=== PATIENT | female | born 1965 ===

== ENCOUNTER 2020-12-07 12:25 | Outpatient (REF) | payer OTHER, SELFPAY ==
--- NOTE | 2020-12-07 | US_ITS ---
EXAMINATION: US DIAGNOSTIC ULTRASOUND BREAST, RIGHT CLINICAL INFORMATION: Palpable abnormality medial aspect right breast. COMPARISON: None. TECHNIQUE: Ultrasound of the breast is performed with real-time rodriguez scale imaging and color Doppler. FINDINGS: Targeted ultrasound evaluation in region of patient's complaint of the right breast did not demonstrate any abnormal cystic or solid mass. No region of abnormal distal sound shadowing. Results are provided to the patient at time of visit by the technologist. US/US breast RT limited IMPRESSION: There are no significant changes from prior study. ASSESSMENT: BI-RADS 1, negative RECOMMENDATION: Routine annual mammography screening due in 12 months. Clinical follow-up.
--- NOTE | 2020-12-07 12:31 | MM_ITS ---
EXAMINATION: MM DIAGNOSTIC DIGITAL BREAST TOMOSYNTHESIS, BILATERAL Targeted right breast ultrasound. CLINICAL INFORMATION: Follow-up right breast density deep lateral aspect as well as patient complaining about pain and palpable area about the inferior aspect of the right breast. The lifetime risk of breast cancer based on the Tyrer-Cuzick Model is 6.4%. COMPARISON: Mammography: 12/02/2019 and studies dating back to 04/16/2016. TECHNIQUE: Digital breast tomosynthesis is performed in both the craniocaudal and mediolateral oblique views along with computer-aided detection (CAD). Synthesized 2D images are generated from the tomosynthesis. Targeted right breast ultrasound. FINDINGS: There are scattered areas of fibroglandular density (ACR BI-RADS breast composition Category b). There are no significant masses, abnormal calcifications, or other abnormalities. Stable density is seen about the deep lateral aspect of the right breast. Stable region of architectural distortion seen upper outer aspect of the left breast. Targeted ultrasound evaluation in region of patient's complaint of the right breast did not demonstrate any abnormal cystic or solid mass. No region of abnormal distal sound shadowing. Results are provided to the patient at time of visit by the technologist. MM/MM tomosynthesis diagnostic BI IMPRESSION: There are no significant changes from prior study. ASSESSMENT: BI-RADS 2: Benign. RECOMMENDATION: Routine annual mammography screening due in 12 months. This patient's information was entered into a reminder system with a target due date for their next mammogram.
== END 2020-12-07 12:26 | disposition home or self-care (01) ==
LOC: HO.MAMMO 12:25
PROVIDERS: PCP Internal Medicine; Visit Provider Internal Medicine
DX: R92.2 Inconclusive mammogram (principal); N64.4 Mastodynia
CPT/HCPCS: 76642; 77062; 77066

== ENCOUNTER 2021-01-08 14:48 | Outpatient (REF) | payer OTHER, SELFPAY ==
[2021-01-08 15:49] LABS: Basophils Absolute Auto 0.1 X10*3/uL (0.0-0.2); Basophils Percent Auto 0.6 % (0-2); Eosinophils Absolute Auto 0.2 X10*3/uL (0.0-0.4); Eosinophils Percent Auto 2.9 % (0-4); Hematocrit 40.2 % (37-47); Hemoglobin 13.2 g/dl (12.0-16.0); Imm Gran Abs Auto 0.03 X10*3/uL (0.00-0.03); Imm Gran Pct Auto 0.4 % (0.0-0.4); Lymphocytes Absolute Auto 3.4 X10*3/uL (1.2-4.9); Lymphocytes Percent Auto 40.6 % (20-40); MANUAL DIFF FLAG NO; Mean Corpuscular HGB Conc 32.8 g/dl (31.0-35.0); Mean Corpuscular Hemoglobin 30.8 pg (27.0-33.0); Mean Corpuscular Volume 93.9 fL (80-98); Mean Platelet Volume 9.9 fL (9.4-12.3); Monocytes Absolute Auto 0.7 X10*3/uL (0.1-1.2); Monocytes Percent Auto 7.8 % (2-11); Neutrophils Percent Auto 47.7 % (45-73); Platelet Count 353 X10*3/uL (160-400); Red Blood Count 4.28 X10*6/uL (4.20-5.50); Red Cell Distribution Width 13.3 % (11.0-16.0); White Blood Count 8.3 X10*3/uL (4.8-10.8)
[2021-01-08 16:19] LABS: Alanine Aminotransferase 17 U/L (0-31); Albumin Level 4.4 g/dL (3.5-5.0); Alkaline Phosphatase 104 U/L (39-117); Anion Gap 10 (12-20); Aspartate Amino Transferase 16 U/L (5-31); Bilirubin Total 0.4 mg/dL (0.0-1.0); Blood Urea Nitrogen 16 mg/dL (9-16); Calcium 9.3 mg/dL (8.4-10.2); Carbon Dioxide 29 mmol/L (22-29); Chloride 104 mmol/L (96-108); Cholesterol 225 mg/dL; Estimated Glomerular Filt Rate > 60; Glucose Random 86 mg/dL (60-115); HDL Cholesterol 46 mg/dL; LDL Cholesterol Calculated 162 mg/dl; Potassium 4.2 mmol/L (3.3-5.1); Sodium 139 mmol/L (135-145); Total Protein 6.8 g/dL (6.5-8.0); Triglycerides 86 mg/dL
[2021-01-08 16:40] LABS: Free T4 (Free Thyroxine) 1.05 ng/dL (0.71-1.85); Thyroid Stimulating Hormone 1.16 uIU/mL (0.32-4.0); Vitamin D 25-OH Total 69.1 ng/mL (>30)
[2021-01-08 16:53] LABS: Folate 6.2 ng/mL (> or = 4.0); Vitamin B12 1257 pg/mL (200-900)
== END 2021-01-08 14:49 | disposition home or self-care (01) ==
LOC: HO.LAB 14:48
PROVIDERS: PCP Internal Medicine; Visit Provider Internal Medicine
DX: E78.00 Pure hypercholesterolemia, unspecified (principal)
CPT/HCPCS: 36415; 80053; 80061; 82306; 82607; 82746; 84439; 84443; 85025

== ENCOUNTER 2021-12-13 15:07 | Outpatient (REF) | payer OTHER, SELFPAY ==
--- NOTE | ~2021-12-13 | MM_ITS ---
EXAMINATION: MM SCREENING DIGITAL BREAST TOMOSYNTHESIS, BILATERAL CLINICAL INFORMATION: Screening. Asymptomatic. The lifetime risk of breast cancer based on the Tyrer-Cuzick Model is 7%. COMPARISON: Mammography: 12/07/2020, 12/02/2019, 05/17/2019, 11/02/2018, 10/05/2018, 06/15/2017 TECHNIQUE: Digital breast tomosynthesis is performed in both the craniocaudal and mediolateral oblique views along with computer-aided detection (CAD). Synthesized 2D images are generated from the tomosynthesis. FINDINGS: There are scattered areas of fibroglandular density (ACR BI-RADS breast composition Category b). There are no significant masses, abnormal calcifications, or other abnormalities. There is stable nodule posterior central 9:00 right breast. Low right axillary tail node on MLO view also stable. Neither breast shows developing density or interval mass or architectural abnormality. The skin contours are smooth. No significant changes. MM/MM tomosynthesis screening BI IMPRESSION: No mammographic evidence of malignancy. ASSESSMENT: BI-RADS 2: Benign RECOMMENDATION: Routine annual mammography screening. This patient's information was entered into a reminder system with a target due date for their next mammogram.
== END 2021-12-13 15:08 | disposition home or self-care (01) ==
LOC: HO.MAMMO 15:07
PROVIDERS: PCP Internal Medicine; Visit Provider Internal Medicine
DX: Z12.31 Encounter for screening mammogram for malignant neoplasm of breast (principal)
CPT/HCPCS: 77063; 77067

== ENCOUNTER 2022-01-17 14:01 | Outpatient (REF) | payer OTHER, SELFPAY ==
[2022-01-17 14:22] LABS: MANUAL DIFF FLAG NO
[2022-01-17 14:42] LABS: Basophils Absolute Auto 0.1 X10*3/uL (0.0-0.2); Basophils Percent Auto 0.8 % (0-2); Eosinophils Absolute Auto 0.4 X10*3/uL (0.0-0.4); Eosinophils Percent Auto 4.5 % (0-4); Hematocrit 40.3 % (37.0-47.0); Hemoglobin 13.2 g/dl (12.0-16.0); Imm Gran Abs Auto 0.02 X10*3/uL (0.00-0.03); Imm Gran Pct Auto 0.2 % (0.0-0.4); Lymphocytes Absolute Auto 3.8 X10*3/uL (1.2-4.9); Lymphocytes Percent Auto 45.1 % (20-40); Mean Corpuscular HGB Conc 32.8 g/dl (31.0-35.0); Mean Corpuscular Hemoglobin 31.7 pg (27.0-33.0); Mean Corpuscular Volume 96.9 fL (80.0-98.0); Mean Platelet Volume 9.5 fL (9.4-12.3); Monocytes Absolute Auto 0.8 X10*3/uL (0.1-1.2); Monocytes Percent Auto 9.6 % (2-11); Neutrophils Absolute Auto 3.3 x10*3/uL (2.0-8.3); Neutrophils Percent Auto 39.8 % (45-73); Platelet Count 305 X10*3/uL (160-400); Red Blood Count 4.16 X10*6/uL (4.20-5.50); Red Cell Distribution Width 12.9 % (11.0-16.0); White Blood Count 8.3 X10*3/uL (4.8-10.8)
[2022-01-17 14:59] LABS: Alanine Aminotransferase 16 U/L (0-31); Albumin Level 4.2 g/dL (3.5-5.0); Alkaline Phosphatase 89 U/L (39-117); Anion Gap 11 (12-20); Aspartate Amino Transferase 18 U/L (5-31); Bilirubin Total 0.3 mg/dL (0.0-1.0); Blood Urea Nitrogen 15 mg/dL (9-16); Calcium 9.6 mg/dL (8.4-10.2); Carbon Dioxide 28 mmol/L (22-29); Chloride 109 mmol/L (96-108); Cholesterol 217 mg/dL; Estimated Glomerular Filt Rate > 60; Glucose Random 90 mg/dL (60-115); HDL Cholesterol 52 mg/dL; LDL Cholesterol Calculated 153 mg/dl; Potassium 4.3 mmol/L (3.3-5.1); Sodium 144 mmol/L (135-145); Total Protein 6.8 g/dL (6.5-8.0); Triglycerides 64 mg/dL
[2022-01-17 15:22] LABS: Free T4 (Free Thyroxine) 1.13 ng/dL (0.71-1.85); Thyroid Stimulating Hormone 1.33 uIU/mL (0.32-4.0); Vitamin D 25-OH Total 71.8 ng/mL (>30)
[2022-01-17 15:35] LABS: Folate 16.4 ng/mL (> or = 4.0); Vitamin B12 349 pg/mL (200-900)
[2022-01-17 16:08] LABS: Appearance Urine CLEAR; Color Urine YELLOW; Glucose Urine UA NEG (NEG); Leukocyte Esterase Urine NEG (NEG); Nitrite Urine NEG (NEG); PH 5.5 (5.0-8.0); Specific Gravity - Urine >= 1.030 (1.005-1.025); Urine Blood 2+ (NEG); Urine Ketones NEG (NEG); Urine Protein NEG (NEG-TRACE)
[2022-01-17 16:29] LABS: Bacteria Urine 1+ /LPF; Squamous Epithelial Cell Urine 1+ /LPF; WBC Urine 0 /HPF (0-4)
[2022-01-19 18:47] LABS: TS Negative Control Passed; TS Panel A 2; TS Panel B 0; TS Positive Control Passed; TSpotTB Negative (Negative)
== END 2022-01-17 14:02 | disposition home or self-care (01) ==
LOC: HO.LAB 14:01
PROVIDERS: PCP Internal Medicine; Visit Provider Internal Medicine
DX: Z00.00 Encounter for general adult medical examination without abnormal findings (principal); E78.00 Pure hypercholesterolemia, unspecified
CPT/HCPCS: 36415; 80053; 80061; 81001; 82306; 82607; 82746; 84439; 84443; 85025; 86481

== ENCOUNTER 2022-01-24 09:30 | Outpatient (REF) | payer OTHER, SELFPAY ==
--- NOTE | ~2022-01-24 | CT_ITS ---
EXAMINATION: CT ABDOMEN AND PELVIS WITHOUT AND WITH CONTRAST CLINICAL INFORMATION: Hematuria COMPARISON: Renal ultrasound 09/28/2018 TECHNIQUE: Multidetector volumetric imaging was performed of the abdomen and pelvis before and after the IV administration of 85 mL of Omnipaque 300 intravenous contrast. Sagittal and coronal reformatted images were obtained on the technologist's workstation. This CT examination was performed using dose optimization techniques as appropriate, variously including the following: *Automated exposure control *Adjustment of mA and/or kV according to patient size (this includes techniques or standardized protocols for targeted exams where dose is matched to indication/reason for exam; i.e. extremities or head) *Use of iterative reconstruction technique DLP: 842 mGy-cm FINDINGS: LUNG BASES: The lung bases are clear. The heart size is normal. LIVER, GALLBLADDER, AND BILIARY TREE: The liver is normal in size, shape, and attenuation. No focal hepatic lesion or biliary ductal dilatation is present. The gallbladder is unremarkable with no evidence of radiopaque gallstones, gallbladder wall thickening, or obvious pericholecystic inflammatory changes. PANCREAS: Unremarkable SPLEEN: Unremarkable ADRENAL GLANDS: Unremarkable KIDNEYS AND URETERS: The kidneys are normal in size, shape, and attenuation. No hydronephrosis, hydroureter, or calculi seen. No perinephric stranding. On delayed images, there is good opacification of bilateral kidney pelvises and the ureters without any intraluminal filling defect or narrowing. There is a 2.0 cm upper/mid pole right renal cyst. The right kidney measures 9.5 cm and left kidney measures 9.6 cm BLADDER: Unremarkable GASTROINTESTINAL TRACT: There is scattered stool and gas seen throughout the colon without distention. The appendix and the small bowel loops are normal caliber. No free air or free fluid seen. ABDOMINAL WALL: No significant hernia is appreciated. LYMPH NODES: Normal VASCULAR: Unremarkable PELVIC VISCERA: The uterus is anteverted and appears unremarkable. There is no free fluid. There are scattered phleboliths in the pelvis. No abnormal size pelvic or inguinal lymph nodes seen. OSSEOUS STRUCTURES: Mild ventral spondylosis L2-L3 disc level. No aggressive lytic or sclerotic process. CT/CT abdomen pelvis wo/w con IMPRESSION: 1. No radiopaque urolith or hydroureteronephrosis. There is a small cyst, midpole right kidney. The kidney pelvis and the ureters are normal. 2. The bladder is unremarkable. 3. No etiology found for hematuria. Fleischner guidelines were followed.
[2022-01-24] MEDS: iohexoL 350 MG/ML 100 ML INFUS..BTL 85 ML IV (10:18)
== END 2022-01-24 09:31 | disposition home or self-care (01) ==
LOC: HO.CT 09:30
PROVIDERS: PCP Internal Medicine; Visit Provider Internal Medicine
DX: R31.9 Hematuria, unspecified (principal)
CPT/HCPCS: 74178; Q9967

== ENCOUNTER 2022-04-15 14:52 | Outpatient (REF) | payer OTHER, SELFPAY ==
--- NOTE | ~2022-04-15 | CT_ITS ---
EXAMINATION: CT CHEST SCREENING CLINICAL INFORMATION: Nicotine dependence. Current smoker one pack a day for 40 years. COMPARISON: None TECHNIQUE: Multidetector volumetric CT imaging of the chest is performed without contrast using low dose technique. Additional 2D coronal and sagittal reformatted images and axial 3D maximum intensity projection (MIP) images are generated on the CT workstation. This CT examination was performed using dose optimization techniques as appropriate, variously including the following: *Automated exposure control *Adjustment of mA and/or kV according to patient size (this includes techniques or standardized protocols for targeted exams where dose is matched to indication/reason for exam; i.e. extremities or head) *Use of iterative reconstruction technique DLP: 45 mGy-cm FINDINGS: LUNGS: The lungs are well expanded and clear of acute pneumonic process. There are no pulmonary nodules, mass or consolidation. Minimal atelectatic changes are seen in the left lung base lateral basal segment and right medial lobe medial segment. MEDIASTINUM: The thyroid lobes are symmetrical and normal. The central trachea and the bronchi are widely patent. Heart size and the great vessels are normal caliber. There is no pericardial effusion. No abnormal size mediastinal or hilar lymph node seen. PLEURA: There is no pleural effusion. No pleural mass or thickening. AXILLA: There are benign-appearing lymph nodes in the axilla. The chest wall is unremarkable. UPPER ABDOMEN: Visualized liver, spleen, pancreas and bilateral adrenal glands are unremarkable. No radiopaque gallstones or wall thickening seen. OSSEOUS STRUCTURES: No lytic or sclerotic process seen. CT/CT lung screening IMPRESSION: Unremarkable CT lung screening exam. ASSESSMENT: Lung-RADS category 1: Negative RECOMMENDATION: Low-dose annual CT chest exam.
== END 2022-04-15 14:53 | disposition home or self-care (01) ==
LOC: HO.CT 14:52
PROVIDERS: Visit Provider Physician Assistant Medical
DX: Z87.891 Personal history of nicotine dependence (principal)
CPT/HCPCS: 71271; G0296

== ENCOUNTER 2022-04-25 10:21 | Outpatient (REF) | payer OTHER, SELFPAY ==
[2022-04-25 14:00] LABS: Urine Cytology See Pathology rpt
[2022-04-25 14:19] LABS: Appearance Urine HAZY; Color Urine YELLOW; Glucose Urine UA NEG (NEG); Leukocyte Esterase Urine NEG (NEG); Nitrite Urine NEG (NEG); UACC Culture Trigger NO; Urine Blood TRACE (NEG); Urine Ketones NEG (NEG); Urine Protein TRACE MG/DL (NEG-TRACE)
[2022-04-25 14:36] LABS: WBC Urine 0-2 /HPF (0-4)
[2022-04-25 14:37] LABS: Squamous Epithelial Cell Urine 2+ /LPF
== END 2022-04-25 10:22 | disposition home or self-care (01) ==
LOC: HO.LAB 10:21
PROVIDERS: PCP Internal Medicine; Visit Provider Internal Medicine
DX: R31.9 Hematuria, unspecified (principal)
CPT/HCPCS: 81001; 81003; 88112

== ENCOUNTER 2022-06-10 14:12 | Outpatient (REF) | payer OTHER, SELFPAY | END 2022-06-10 14:13 | disposition home or self-care (01) | LOC: HO.LAB 14:12 | DX: Z13.89 Encounter for screening for other disorder (principal) ==

== ENCOUNTER → 2022-07-22 14:53 | Outpatient (BNVA) | payer OTHER, SELFPAY | PROVIDERS: PCP Internal Medicine; Visit Provider Urology | DX: R31.29 Other microscopic hematuria (principal) | CPT/HCPCS: 52000 ==

== ENCOUNTER 2023-01-13 07:46 | Outpatient (REF) | payer OTHER, SELFPAY ==
--- NOTE | ~2023-01-13 | MM_ITS ---
EXAMINATION: MM SCREENING DIGITAL BREAST TOMOSYNTHESIS, BILATERAL CLINICAL INFORMATION: Screening. Asymptomatic. The lifetime risk of breast cancer based on the Tyrer-Cuzick Model is 6%. COMPARISON: Multiple prior mammography exams, most recent 12/13/2021. TECHNIQUE: Digital breast tomosynthesis is performed in both the craniocaudal and mediolateral oblique views along with computer-aided detection (CAD). Synthesized 2D images are generated from the tomosynthesis. FINDINGS: There are scattered areas of fibroglandular density (ACR BI-RADS breast composition Category b). There are scattered bilateral parenchymal asymmetries similar to prior studies. There is no developing density or interval mass or architectural abnormality. No abnormal calcifications. The axilla and skin contours are unremarkable. No significant changes from prior exams. MM/MM tomosynthesis screening BI IMPRESSION: No significant changes from prior studies. ASSESSMENT: BI-RADS 2: Benign RECOMMENDATION: Routine annual mammography screening. This patient's information was entered into a reminder system with a target due date for their next mammogram.
[2023-01-13 08:01] LABS: MANUAL DIFF FLAG NO
[2023-01-13 08:17] LABS: Basophils Absolute Auto 0.1 X10*3/uL (0.0-0.2); Basophils Percent Auto 0.9 % (0-2); Eosinophils Absolute Auto 0.2 X10*3/uL (0.0-0.4); Eosinophils Percent Auto 2.8 % (0-4); Hematocrit 38.9 % (37.0-47.0); Hemoglobin 12.9 g/dl (12.0-16.0); Imm Gran Abs Auto 0.01 X10*3/uL (0.00-0.03); Imm Gran Pct Auto 0.1 % (0.0-0.4); Lymphocytes Absolute Auto 4.3 X10*3/uL (1.2-4.9); Lymphocytes Percent Auto 50.2 % (20-40); Mean Corpuscular HGB Conc 33.2 g/dl (31.0-35.0); Mean Corpuscular Volume 93.5 fL (80.0-98.0); Mean Platelet Volume 9.2 fL (9.4-12.3); Monocytes Absolute Auto 0.7 X10*3/uL (0.1-1.2); Monocytes Percent Auto 8.7 % (2-11); Neutrophils Absolute Auto 3.1 x10*3/uL (2.0-8.3); Neutrophils Percent Auto 37.3 % (45-73); Platelet Count 337 X10*3/uL (160-400); Red Blood Count 4.16 X10*6/uL (4.20-5.50); Red Cell Distribution Width 13.5 % (11.0-16.0); White Blood Count 8.5 X10*3/uL (4.8-10.8)
[2023-01-13 08:58] LABS: Alanine Aminotransferase 19 U/L (0-31); Alkaline Phosphatase 95 U/L (39-117); Anion Gap 13 (12-20); Aspartate Amino Transferase 18 U/L (5-31); Bilirubin Total 0.4 mg/dL (0.0-1.0); Blood Urea Nitrogen 20 mg/dL (9-16); Calcium 8.9 mg/dL (8.4-10.2); Carbon Dioxide 25 mmol/L (22-29); Chloride 109 mmol/L (96-108); Cholesterol 224 mg/dL; Estimated Glomerular Filt Rate > 60; Glucose Random 97 mg/dL (60-115); HDL Cholesterol 54 mg/dL; LDL Cholesterol Calculated 159 mg/dl; Potassium 4.5 mmol/L (3.3-5.1); Sodium 142 mmol/L (135-145); Total Protein 6.1 g/dL (6.5-8.0); Triglycerides 59 mg/dL
[2023-01-13 09:26] LABS: Folate 13.5 ng/mL (> or = 4.0); Free T4 (Free Thyroxine) 1.03 ng/dL (0.71-1.85); Thyroid Stimulating Hormone 1.71 uIU/mL (0.32-4.0); Vitamin B12 398 pg/mL (200-900)
== END 2023-01-13 07:47 | disposition home or self-care (01) ==
LOC: HO.MAMMO 07:46
PROVIDERS: PCP Internal Medicine; Visit Provider Internal Medicine
DX: Z12.31 Encounter for screening mammogram for malignant neoplasm of breast (principal); E78.00 Pure hypercholesterolemia, unspecified
CPT/HCPCS: 36415; 77063; 77067; 80053; 80061; 82607; 82746; 84439; 84443; 85025

== ENCOUNTER 2023-07-21 14:02 | Outpatient (AMB) | payer OTHER, SELFPAY ==
--- NOTE | 2023-07-21 14:13 | MHC.OFFVIS ---
Intake Intake Visit Reasons: Hematuria- yearly follow up Intake Note: Patient presents for follow up Micro Hematuria Urology Medications: none Blood Thinner: none Director Clinical Information Services Required: No Accompanied by: Self / Same As Patient Allergies duloxetine Adverse Reaction (Intermediate, Verified 07/21/23 14:19) sedation Medication List - Last Reconciled 07/21/23 by Jaron Nieto MD ascorbic acid (vitamin C) 500 mg PO DAILY cholecalciferol (vitamin D3) 25 mcg PO DAILY [CPAP As directed] magnesium oxide 500 mg PO DAILY nicotine 1 patch transdermal DAILY vitamin E (dl, acetate) 180 mg PO DAILY HPI HPI Comments History of Present Illness Details Syeda is a pleasant female. She is a patient Dr. Pizarro. 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 07/28 Has anteverted uterus and cervical cuff is collapsing bladder down on to trigone. This creates irritation and small blood vessels on the bladder side likely causing microscopic hematuria. [facility] Medical History Personal history of nicotine dependence Hypercholesterolemia Fibromyalgia Insomnia Allergic rhinitis Vitamin D deficiency Surgical History History of colonoscopy (~2016) Status post excision of lipoma (~2011) History of lithotripsy (~2015) History of tonsillectomy Family History Father Hypertension Multiple myeloma Mother Bladder cancer Brain cancer Maternal Grandmother Gastric cancer Paternal Grandfather Brain tumor Son In good health Son In good health Son In good health Brother In good health Brother In good health Social History Housing: House Alcohol intake: current Alcohol intake frequency: holidays/special occasions only Patient Tobacco Use Status: Current someday Tobacco user Tobacco use type: Cigarette Years Smoked: (onset 15yo, 1ppd x 41yrs, 40pyh, still smoking) e-Cigarette/Vaping Use: Never Used Second Hand Smoke Exposure: No Current occupational status: employed Cognitive needs: No Hearing needs: No Vision needs: No Review of Systems Const Denies chills and Denies fever(s) Card Reports no additional complaints and Denies syncope Resp Denies cough GI Denies abdominal pain and Denies heartburn Reports as per HPI and Denies change in libido Neuro Denies syncope Psych Denies change in libido Endo Denies change in libido Physical Exam Const General: cooperative, healthy appearing, comfortable and no acute distress Orientation/consciousness: patient oriented x3 HEENT Face and sinus: Yes normal facial exam Mouth: moist mucous membranes Neck Neck: Yes normal visual inspection, Yes full ROM and Yes trachea midline Chest Chest palpation & inspection: normal inspection of the chest Resp Effort & Inspection: normal respiratory effort, able to speak in complete sentences and no respiratory distress GI Inspection: Yes normal to inspection Back/Spine/Pelvis Cervical Spine: normal cervical lordosis Thoracic/Lumbar Spine: thoracic and lumbar spine normal to inspection Skin General skin exam: no rashes or lesions noted Neuro General: patient oriented x3, gait normal, tone normal and moves all extremities Extrem General: Yes normal to inspection and Yes capillary refill normal Results AMB Urinalysis, Automated UA Leukoctes 0 Rosalina/uL Last Edit by Applaud on 07/21/23 14:30 UA Nitrite Last Edit by Applaud on 07/21/23 14:30 UA Urobilinogen 0.2 mg/dL Last Edit by Applaud on 07/21/23 14:30 UA Protein 0 mg/dL Last Edit by Applaud on 07/21/23 14:30 UA pH 6.0 Last Edit by Applaud on 07/21/23 14:30 UA Blood 25 Mike/uL Last Edit by Applaud on 07/21/23 14:30 UA Specific [place] 1.020 Last Edit by Applaud on 07/21/23 14:30 UA Ketone Negative Last Edit by Applaud on 07/21/23 14:30 UA Bilirubin 0 mg/dL Last Edit by Applaud on 07/21/23 14:30 UA Glucose 0 mg/dL Last Edit by Applaud on 07/21/23 14:30 Assessment & Plan Assessment & Plan (1) Microscopic hematuria: Code(s): R31.29 - Other microscopic hematuria Plan Twelve month follow-up renal bladder ultrasound Orders: Orders AMB Urinalysis Automated Today R31.29 - Other microscopic hematuria, Z13.9 - Encounter for screening, unspecified US retroperitoneal limited Today R31.29 - Other microscopic hematuria Patient Instructions: Imaging studies, laboratory and physical exam results were discussed and reviewed in detail. No major barriers to patient understanding were identified. An opportunity to ask questions regarding the treatment plan was provided. All questions were answered. The patient expressed understanding and agreement with the above treatment plan. The patient is aware they should contact our office by phone for worsening of their current condition or the appearance of new urologic symptoms. Compliance is encouraged with any medications and followup testing that is ordered. It is a privilege to participate in the urologic care of your patient. If you have any questions or concerns regarding treatment for the above conditions, or other urologic issues, please do not hesitate to contact me. The office telephone contact is [phone]. This note is constructed using voice recognition software. While every effort has been made to ensure accuracy building performance specialist errors may have been included. Yours sincerely, Dr Jaron Nieto MD, [facility] - Urology Providers of Expert, Compassionate Care for the Genitourinary System Coding Level of Care Code Est Pt Level 4 (59707) Diagnoses Microscopic hematuria R31.29
== END 2023-07-21 14:28 | disposition home or self-care (01) ==
PROVIDERS: PCP Internal Medicine; Visit Provider Urology
DX: R31.29 Other microscopic hematuria (principal); Z13.9 Encounter for screening, unspecified
CPT/HCPCS: 99213

== ENCOUNTER 2023-07-21 14:02 | Outpatient (REF) | payer OTHER, SELFPAY ==
[2023-07-21 16:41] LABS: Urine Cytology See Pathology rpt
== END 2023-07-21 14:03 | disposition home or self-care (01) ==
LOC: HO.LNP 14:02
PROVIDERS: Visit Provider Urology
DX: R31.29 Other microscopic hematuria (principal)
CPT/HCPCS: 81003; 88112

== ENCOUNTER 2023-12-11 11:04 | Outpatient (REF) | payer OTHER, SELFPAY ==
--- NOTE | ~2023-12-11 | CT_ITS ---
EXAMINATION: CT CHEST SCREENING CLINICAL INFORMATION: Nicotine dependence; 43 factors smoking history; current smoker. COMPARISON: CT chest screening dated 04/15/2022. TECHNIQUE: Multidetector volumetric CT imaging of the chest is performed without contrast using low dose technique. Additional 2D coronal and sagittal reformatted images and axial 3D maximum intensity projection (MIP) images are generated on the CT workstation. This CT examination was performed using dose optimization techniques as appropriate, variously including the following: *Automated exposure control *Adjustment of mA and/or kV according to patient size (this includes techniques or standardized protocols for targeted exams where dose is matched to indication/reason for exam; i.e. extremities or head) *Use of iterative reconstruction technique DLP: 49 mGy-cm FINDINGS: LUNGS: The lungs are clear with no evidence of inflammation or nodules. There are minimal bibasilar foci of linear scar/subsegmental atelectasis, without focal airway obstruction. MEDIASTINUM: The mediastinum is normal. CORONARY ARTERY CALCIFICATION: Minimal. PLEURA: There is no pleural effusion. No pleural mass or thickening. AXILLA: No lymphadenopathy. UPPER ABDOMEN: Unremarkable OSSEOUS STRUCTURES: Unremarkable. CT/CT lung screening IMPRESSION: Unremarkable examination. ASSESSMENT: Lung-RADS category 1: Negative RECOMMENDATION: Routine annual low-dose CT screening in 12 months.
== END 2023-12-11 11:05 | disposition home or self-care (01) ==
LOC: HO.CT 11:04
PROVIDERS: PCP Internal Medicine; Visit Provider Physician Assistant Medical
DX: F17.210 Nicotine dependence, cigarettes, uncomplicated (principal)
CPT/HCPCS: 71271

== ENCOUNTER → 2024-01-15 09:30 | Outpatient (BNV) | payer OTHER, SELFPAY | PROVIDERS: PCP Internal Medicine; Visit Provider Radiology Diagnostic Radiology | DX: Z12.31 Encounter for screening mammogram for malignant neoplasm of breast (principal) | CPT/HCPCS: 77063; 77067 ==

== ENCOUNTER 2024-01-15 09:39 | Outpatient (REF) | payer OTHER, SELFPAY | END 2024-01-15 09:40 | disposition home or self-care (01) | LOC: HO.MAMMO 09:39 | PROVIDERS: PCP Internal Medicine; Visit Provider Internal Medicine | DX: Z12.31 Encounter for screening mammogram for malignant neoplasm of breast (principal) | CPT/HCPCS: 77063; 77067 ==

== ENCOUNTER 2024-01-26 16:02 | Outpatient (AMB) | payer OTHER, SELFPAY ==
--- NOTE | 2024-01-26 16:10 | A.OFFPC_ITS ---
Vital Signs 01/26/24 16:13 Height 5 ft 3 in Weight 169 lb 8 oz BMI 30.0 BP 100/70 Blood Pressure Location Lt brachial Position Sitting Pulse 65 Pulse Source Pulse Oximeter Pulse Oximetry (%) 96 Oxygen Delivery Method Room Air Intake Visit Reasons: pe Intake Note: Patient is here today for a physical. Administrative Receptionist Required: No Telephone Mechanic: Not Required per policy Accompanied by: Self / Same As Patient Allergies duloxetine Adverse Reaction (Intermediate, Verified 01/26/24 16:12) sedation Medication List - Last Reconciled 01/26/24 by Yessy Pizarro MD biotin (Hair, Skin and Nails (biotin)) mcg PO cholecalciferol (vitamin D3) 25 mcg PO DAILY [CPAP As directed] magnesium oxide 500 mg PO DAILY mecobalamin (vitamin B12) 5,000 mcg PO .every other day plant stanol devonte (Cholest Off Plus) mg PO Tobacco use date assessed: 01/26/24 Dental Screening Dental Screen Date: 01/26/24 Did you have a dental visit in the last 12 months?: Yes Did you have a dental problem in the last 6 months where you did not have access to dental care?: No Was dental information given to patient?: Patient has dentist HPI pe HPI Details 58-year-old obese female with obstructiv e sleep apnea hypercholesterolemia coming in for physical exam last seen in January 2023. Patient's mammogram is due colonoscopy is up-to-date. Because of the history of smoking patient is in the lung cancer screening program had a CT scan done in December 2023 unremarkable. 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 Concern that patient has gone back to smoking 10 cigarettes a day. [facility] Medical History (Updated 01/26/24 @ 17:02 by Yessy Pizarro MD) Hematuria Anxiety Personal history of nicotine dependence Hypercholesterolemia Fibromyalgia Insomnia Allergic rhinitis Vitamin D deficiency Surgical History History of colonoscopy (~2016) Status post excision of lipoma (~2011) History of lithotripsy (~2015) History of tonsillectomy Family History (Updated 01/26/24 @ 16:11 by JOSE RAUL Lucio) Father Hypertension Multiple myeloma Mother Bladder cancer Brain cancer Maternal Grandmother Gastric cancer Paternal Grandfather Brain tumor Son In good health Son In good health Son In good health Brother In good health Brother In good health Social History (Updated 01/26/24 @ 16:52 by Yessy Pizarro MD) Housing: House Alcohol intake: current Alcohol intake frequency: holidays/special occasions only Comment: once Q 3 months 1-3 drinks Patient Tobacco Use Status: Current everyday Tobacco user Tobacco use type: Cigarette Cigarette Packs Per Day: 0.5 Cigarettes Per Day: 10 Years Smoked: (onset 15yo, 1ppd x 41yrs, 40pyh, still smoking) 10 cigarettes a day e-Cigarette/Vaping Use: Never Used Second Hand Smoke Exposure: No service: No Current occupational status: employed Cognitive needs: No Hearing needs: No Vision needs: No Questionnaire PHQ-9 Over the last 2 weeks, how often have you been bothered by any of the following problems? 1. Little interest or pleasure in doing things: not at all 2. Feeling down, depressed, or hopeless: not at all 3. Trouble falling or staying asleep, or sleeping too much: not at all 4. Feeling tired or having little energy: not at all 5. Poor appetite or overeating: not at all 6. Feeling bad about yourself - or that you are a failure or have let yourself or your family down: not at all 7. Trouble concentrating on things, such as reading the newspaper or watching television: not at all 8. Moving or speaking so slowly that other people could have noticed. Or the opposite - being so fidgety or restless that you have been moving around a lot more than usual: not at all 9. Thoughts that you would be better off or of hurting yourself in some way: not at all Total score: 0 Depression Screening Interpretation: Negative Depression Screening Done: Yes Source: Developed by Drs. Jean Pierre Tiwari, Alejandra Bender, Sukhjinder Houston and colleagues, with an educational elisabet from [employer]. Thrive Questionnaire Date Thrive assessed: 01/26/24 I am a: Patient What is your living situation today?: I have a steady place to live Within the past 12 months, did the food you bought not last and you didn't have the money to get more?: Never true Within the past 12 months, did you worry whether your food would run out before you got money to buy more?: Never true Do you have trouble paying for medicines?: No Do you have trouble getting transportation to medical appointments?: No Do you have trouble paying your heating and electricity bill?: No Do you have trouble taking care of your child, family member or friend?: No Do you have trouble with day-to-day activities such as bathing, preparing meals, shopping, managing finances, etc.?: No Are you currently unemployed and looking for a job?: No Are you interested in more education?: No Currently or been in a relationship where the following occur: no concerns reported THRIVE Score: 0 AUDIT C Alcohol Use Questionnaire (AUDIT-C) 1. How often do you have a drink containing alcohol?: Monthly or less 2. How many drinks containing alcohol do you have on a typical day when you are drinking?: 1 or 2 Total Score: 1 MUKUL-7 AMB Questionnaire MUKUL-7 Date MUKUL - 7 assessed: 01/26/24 Feeling nervous, anxious, or on edge: 0 = Not at all Not being able to stop or control worryin = Not at all Worrying too much about different things: 0 = Not at all Trouble relaxin = Not at all Being so restless that it is hard to sit still: 0 = Not at all Becoming easily annoyed or irritable: 0 = Not at all Feeling afraid as if something awful might happen: 0 = Not at all Total MUKUL-7 score (0-4 normal; 5-9 mild; 10-14 moderate; 15-21 severe): 0 Source: Developed by Drs. Jean Pierre Tiwari, Alejandra Bender, Sukhjinder Houston and colleagues, with an educational elisabet from [employer]. Review of Systems Const Denies poor appetite and Denies weakness Eyes Denies no additional complaints ENT Reports Normal hearing present, Denies dizziness, Denies nasal congestion, Denies tinnitus and Denies sore throat Card Denies chest pain, Denies syncope, Denies rapid heart rate and Denies dyspnea Resp Denies cough and Denies dyspnea GI Denies change in stool character, Reports constipation, Denies diarrhea, Denies nausea and Denies vomiting Denies urinary frequency, Denies difficulty voiding and Denies dysuria Neuro Reports Normal hearing present, Denies confusion, Denies dizziness, Denies syncope and Denies weakness Psych Denies confusion Physical exam (Primary Care) Vital Signs: Last Vital Signs Pulse 65 01/26/24 16:13 BP 100/70 01/26/24 16:13 Pulse Ox 96 01/26/24 16:13 Oxygen Delivery Method Room Air 01/26/24 16:13 BMI result Body Mass Index 30.0 Tobacco/Smoking Status: Tobacco use Status Tobacco use date assessed 01/26/24 01/26/24 16:20 Patient Tobacco Use Status Current everyday Tobacco 01/26/24 16:20 Tobacco use type Cigarette 01/26/24 16:20 e-Cigarette/Vaping Use Never Used 01/26/24 16:20 PHQ-9: PHQ-9 Score PHQ-9: Total score 0 01/26/24 16:20 Depression Screening Interpretation: Negative Thrive Assessment: Date of Thrive Assessment Date Thrive assessed 01/26/24 01/26/24 16:20 Currently or been in a relationship where the following occur: no concerns reported Const Other: Right TM has impacted cerumen, left is clear TM intact lower extremity pulses are palpated and equal. General: No confusion Orientation/consciousness: No confusion HENMN Head: Yes normocephalic Ears: external ears normal and TM's normal bilaterally Face and sinus: Yes normal facial exam Mouth: moist mucous membranes Throat: Yes tonsils normal Eyes Conjunctivae: conjunctivae normal Pupils: Equal, round and reactive pupils present and Pupil accommodation reflex normal Direct Ophthalmoscopy: normal light reflex Neck Neck: No lymphadenopathy Thyroid: Thyroid normal Chest Chest palpation & inspection: normal inspection of the chest Resp Effort & Inspection: normal respiratory effort and no audible wheezes Auscultation: clear to auscultation bilaterally, no crackles, no wheezes and lung sounds not diminished Cardio Rate: regular rate Rhythm: regular rhythm Peripheral pulses: radial pulses present and dorsalis pedis present GI Palpation (GI): no masses Auscultation: normal bowel sounds and normoactive bowel sounds Rectal Exam - Female: deferred Skin General skin exam: no rashes or lesions noted Rashes: no rashes Neuro General: No confusion Cranial nerves: Yes Equal, round and reactive pupils present and Yes Normal hearing present Cognition (Neuro): normal cognition Gait exam (Neuro): Normal gait present Motor exam (neuro): 5/5 motor strength present throughout Deep tendon reflexes (DTR's): Right brachioradialis reflex intensity grade: 2+, Left brachioradialis reflex intensity grade: 2+, Right patellar reflex intensity grade: 2+ and Left patellar reflex intensity grade: 2+ Extrem General: No edema Assessment and Plan Assessment & Plan (1) Annual physical exam: Code(s): Z00.00 - Encounter for general adult medical examination without abnormal findings (2) Microscopic hematuria: Comment: Urology 2021 cystoscopy Code(s): R31.29 - Other microscopic hematuria Plan: Patient follows up with urology yearly (3) Obstructive sleep apnea (adult) (pediatric): Comment: 04/2022 Code(s): G47.33 - Obstructive sleep apnea (adult) (pediatric) Plan: Continue to use the CPAP more than 4 hours a night and benefits from this. (4) Personal history of nicotine dependence: Comment: (onset 15, 1ppd x 41yrs, 40pyh, CT scan December 2023 Code(s): Z87.891 - Personal history of nicotine dependence Plan: Patient just had a CT scan done December 2023 and the yearly. stongly advised to stop. (5) Hypercholesterolemia: Code(s): E78.00 - Pure hypercholesterolemia, unspecified Plan: Avoid fried foods, chicken skin, eggs, butter margarine, pastries and meat. Be it pork or beef they have a lot of cholesterol January 2023 last blood work LDL goal of less than 130 and triglyceride of less than 150 (6) Peripheral neuropathy: Code(s): G62.9 - Polyneuropathy, unspecified Plan: Sent in gabapentin. Discussed about testing would nerve conduction and EMG. Will hold off and try the medication. Medications: New gabapentin 100 mg PO BEDTIME 30 caps 3RF G62.9 - Polyneuropathy, unspecified Coding Level of Care Code Est Pt Prev Care 40-64y(40132) Diagnoses Annual physical exam Z00.00 Microscopic hematuria R31.29 Obstructive sleep apnea (adult) (pediatric) G47.33 Personal history of nicotine dependence Z87.891 Hypercholesterolemia E78.00 Peripheral neuropathy G62.9
[2024-01-26 16:13] VITALS: BP 100/70; PULSE 65; O2SAT 96
== END 2024-01-26 17:06 | disposition home or self-care (01) ==
PROVIDERS: Visit Provider Internal Medicine
DX: Z00.00 Encounter for general adult medical examination without abnormal findings (principal); R31.29 Other microscopic hematuria; G47.33 Obstructive sleep apnea (adult) (pediatric); Z87.891 Personal history of nicotine dependence; E78.00 Pure hypercholesterolemia, unspecified; G62.9 Polyneuropathy, unspecified
CPT/HCPCS: 99396

== ENCOUNTER 2024-01-31 10:02 | Outpatient (REF) | payer OTHER, SELFPAY ==
[2024-01-31 10:23] LABS: MANUAL DIFF FLAG NO
[2024-01-31 12:10] LABS: Basophils Percent Auto 0.5 % (0-2); Eosinophils Absolute Auto 0.2 X10*3/uL (0.0-0.4); Eosinophils Percent Auto 2.9 % (0-4); Hematocrit 39.4 % (37.0-47.0); Imm Gran Abs Auto 0.01 X10*3/uL (0.00-0.03); Imm Gran Pct Auto 0.1 % (0.0-0.4); Lymphocytes Absolute Auto 3.3 X10*3/uL (1.2-4.9); Lymphocytes Percent Auto 42.6 % (20-40); Mean Corpuscular Hemoglobin 31.3 pg (27.0-33.0); Mean Corpuscular Volume 94.9 fL (80.0-98.0); Mean Platelet Volume 10.3 fL (9.4-12.3); Monocytes Absolute Auto 0.8 X10*3/uL (0.1-1.2); Monocytes Percent Auto 10.4 % (2-11); Neutrophils Absolute Auto 3.3 x10*3/uL (2.0-8.3); Neutrophils Percent Auto 43.5 % (45-73); Platelet Count 308 X10*3/uL (160-400); Red Blood Count 4.15 X10*6/uL (4.20-5.50); Red Cell Distribution Width 13.2 % (11.0-16.0); White Blood Count 7.7 X10*3/uL (4.8-10.8)
[2024-01-31 13:09] LABS: Alanine Aminotransferase 20 U/L (0-31); Alkaline Phosphatase 87 U/L (39-117); Anion Gap 9 (12-20); Aspartate Amino Transferase 19 U/L (5-31); Bilirubin Total 0.4 mg/dL (0.0-1.0); Blood Urea Nitrogen 14 mg/dL (9-16); Calcium 9.3 mg/dL (8.4-10.2); Carbon Dioxide 28 mmol/L (22-29); Chloride 109 mmol/L (96-108); Cholesterol 195 mg/dL (<200); Estimated Glomerular Filt Rate > 60; Glucose Random 80 mg/dL (60-115); HDL Cholesterol 54 mg/dL (>40); LDL Cholesterol Calculated 130 mg/dL (<100); Potassium 4.4 mmol/L (3.3-5.1); Sodium 142 mmol/L (135-145); Total Protein 6.6 g/dL (6.5-8.0); Triglycerides 56 mg/dL (<150)
[2024-01-31 13:14] LABS: Free T4 (Free Thyroxine) 1.07 ng/dL (0.71-1.85); Thyroid Stimulating Hormone 1.29 uIU/mL (0.32-4.0); Vitamin D 25-OH Total 46.1 ng/mL (>30)
[2024-01-31 13:24] LABS: Vitamin B12 459 pg/mL (200-900)
[2024-02-02 23:08] LABS: TS Negative Control Passed; TS Panel A 0; TS Panel B 0; TS Positive Control Passed; TSpotTB Negative (Negative)
== END 2024-01-31 10:03 | disposition home or self-care (01) ==
LOC: HO.LAB 10:02
PROVIDERS: PCP Internal Medicine; Visit Provider Internal Medicine
DX: E78.00 Pure hypercholesterolemia, unspecified (principal)
CPT/HCPCS: 36415; 80053; 80061; 82306; 82607; 82746; 84439; 84443; 85025; 86481

== ENCOUNTER 2024-04-15 19:15 | Emergency (ER) | payer OTHER, SELFPAY ==
--- NOTE | ~2024-04-15 | XR_ITS ---
EXAMINATION: XR FOOT, RIGHT CLINICAL INFORMATION: Pain. Injury. COMPARISON: None available. TECHNIQUE: AP, lateral, and oblique views of the right foot. FINDINGS: The bones and soft tissues are normal. No fracture. Alignment is anatomic. Joint spaces are maintained. XR/XR foot RT min 3V IMPRESSION: Normal right foot.
--- NOTE | ~2024-04-15 | XR_ITS ---
EXAMINATION: XR ANKLE, RIGHT CLINICAL INFORMATION: Pain. Injury. COMPARISON: None available. TECHNIQUE: AP, lateral, and mortise views of the right ankle. FINDINGS: No fracture. Alignment is anatomic. No erosions. Joint spaces are maintained. Soft tissues are normal. XR/XR ankle RT min 3V IMPRESSION: Normal right ankle.
[2024-04-15 20:10] VITALS: BP 120/63; PULSE 76; RESP 18; TEMP 36.4; O2SAT 100; BMI 31.0
--- NOTE | 2024-04-15 20:16 | ED_ITS ---
HPI - General Adult General Chief complaint: Extremity Injury, Lower Stated complaint: ? R broken foot Time Seen by Provider: 04/15/24 22:55 Source: patient Mode of arrival: ambulatory Limitations: no limitations History of Present Illness ED Provider: manjit HPI narrative: Patient's while going downstairs missed the last 2 steps and twisted her right complaining of pain in the lateral aspect of the right foot no other injuries Related Data Home Medications ?Medication ?Instructions ?Recorded ?Confirmed cholecalciferol (vitamin D3) 25 25 mcg PO DAILY 01/08/21 01/26/24 mcg (1,000 unit) capsule magnesium oxide 500 mg capsule 500 mg PO DAILY 01/20/23 01/26/24 biotin 10,000 mcg chewable tablet mcg PO 01/26/24 01/26/24 (Hair, Skin and Nails (biotin)) mecobalamin (vitamin B12) 5,000 5,000 mcg PO .every other day 01/26/24 01/26/24 mcg disintegrating tablet plant stanol devonte 450 mg capsule mg PO 01/26/24 01/26/24 (Cholest Off Plus) Previous Rx's ?Medication ?Instructions ?Recorded CPAP #1 ea 07/15/22 gabapentin 100 mg capsule 100 mg PO BEDTIME #30 caps 01/26/24 ibuprofen 600 mg tablet 600 mg PO Q6H PRN fever or pain 04/15/24 #30 tabs Allergies Allergy/AdvReac Type Severity Reaction Status Date / Time duloxetine AdvReac Intermediate sedation Verified 04/15/24 20:12 Review of Systems 2 Review of Systems: Yes all other systems are reviewed and are negative PMFSH Past Medical History Medical History Hematuria Anxiety Personal history of nicotine dependence Hypercholesterolemia Fibromyalgia Insomnia Allergic rhinitis Vitamin D deficiency Surgical History History of colonoscopy (~2016) Status post excision of lipoma (~2011) History of lithotripsy (~2015) History of tonsillectomy Family History Family History Father Hypertension Multiple myeloma Mother Bladder cancer Brain cancer Maternal Grandmother Gastric cancer Paternal Grandfather Brain tumor Son In good health Son In good health Son In good health Brother In good health Brother In good health Social History Social History Housing: House Alcohol intake: current Alcohol intake frequency: holidays/special occasions only Comment: once Q 3 months 1-3 drinks Patient Tobacco Use Status: Current everyday Tobacco user Tobacco use type: Cigarette Cigarette Packs Per Day: 0.5 Cigarettes Per Day: 10 Years Smoked: (onset 15yo, 1ppd x 41yrs, 40pyh, still smoking) 10 cigarettes a day e-Cigarette/Vaping Use: Never Used Second Hand Smoke Exposure: No Advance Directives: No Advance Directives Information Provided: Yes Do you have a plan to hurt others: No Plan service: No Current occupational status: employed Cognitive needs: No Hearing needs: No Vision needs: No Physical Exam ED Vital Signs: Vital Signs - 24 hr 04/15/24 20:10 Temperature 97.5 F Pulse Rate 76 Respiratory Rate 18 Blood Pressure 120/63 Pulse Oximetry 100 Oxygen Delivery Method Room Air BMI result Body Mass Index 31.0 Extrem Ankle/foot/toe images: 2 1. Tenderness and soft tissue swelling of the right ankle area no bony deformity neurovascular intact Course Course Course Narrative: RME performed by Sheryl Marcos PA-C. Patient is a 58 year old assigned female at presenting to the emergency department with right foot pain after missing a stair. Detailed physical exam and review of systems are deferred to the mental health clinician. Imaging ordered. Patient placed back in the waiting room pending room availability and results. Patient seen and dispositioned by Dr. Caraballo. Please refer to his encounter from this visit date. Medications Administered Discontinued Medications Generic Name Dose Route Start Last Admin Trade Name Freq PRN Reason Stop Dose Admin Ibuprofen 600 mg 04/15/24 23:31 04/15/24 23:37 Ibuprofen 600 Mg Tablet PO 04/15/24 23:32 600 mg ONCE ONE Administration Medical Decision Making Medical Decision Making MDM Narrative: X-ray negative factor clinically just sprain cherelle wrap was applied Independent Interpretation I performed an independent interpretation of an: Plain X-Ray Radiology Impression Discussion of test interpretation with radiology: I have reviewed the radiologist's reading. Discharge Plan Discharge Clinical Impression: Ankle sprain and strain Patient Disposition: Home, Self-Care Instructions: Ankle Sprain (ED) Additional Instructions: Keep your right leg elevated apply ice Pain medication as advised Use crutches for ambulation Usually takes 2-3 weeks to get better Prescriptions: New ibuprofen 600 mg tablet 600 mg PO Q6H PRN (Reason: fever or pain) Qty: 30 0RF No Action cholecalciferol (vitamin D3) 25 mcg (1,000 unit) capsule 25 mcg PO DAILY (DME) CPAP See Rx Instructions .Route .MEDSUPPLY Qty: 1 0RF Rx Instructions: As directed magnesium oxide 500 mg capsule 500 mg PO DAILY mecobalamin (vitamin B12) 5,000 mcg tablet,disintegrating 5,000 mcg PO .every other day Hair, Skin and Nails (biotin) 10,000 mcg tablet,chewable PO Cholest Off Plus 450 mg capsule PO gabapentin 100 mg capsule 100 mg PO BEDTIME Qty: 30 3RF Stand Alone Forms: Work/School Release Interventions: ED Discharge Assessment Last Done: 04/15/24 23:39 Discharge Date/Time: 04/15/24 23:45 Print Language: Luxembourger
[2024-04-15 23:32] VITALS: BP 120/61; PULSE 71; RESP 18; TEMP 36.9; O2SAT 96
[2024-04-15] MEDS: Ibuprofen 600 MG TABLET PO (23:37)
[2024-04-15 23:39] VITALS: BP 120/61; PULSE 71; RESP 18; TEMP 36.9; O2SAT 96
== END 2024-04-15 23:45 | disposition home or self-care (01) ==
PROVIDERS: Emergency Provider Internal Medicine; PCP Internal Medicine
DX: S93.401A Sprain of unspecified ligament of right ankle, initial encounter (principal); S96.911A Strain of unspecified muscle and tendon at ankle and foot level, right foot, initial encounter; X50.1XXA Overexertion from prolonged static or awkward postures, initial encounter; Y93.9 Activity, unspecified; Y92.9 Unspecified place or not applicable; Y99.9 Unspecified external cause status
CPT/HCPCS: 73610; 73630; 99283

== ENCOUNTER 2024-05-27 12:49 | Outpatient (AMB) | payer OTHER, SELFPAY ==
[2024-05-27 12:52] VITALS: BP 132/68; PULSE 81; O2SAT 98; BMI 31.2
--- NOTE | 2024-05-27 12:52 | MHC.PC.OV ---
Vital Signs 05/27/24 12:52 Height 5 ft 3 in Weight 176 lb BMI 31.2 BP 132/68 Blood Pressure Location Lt brachial Position Sitting Pulse 81 Pulse Source Pulse Oximeter Pulse Oximetry (%) 98 Oxygen Delivery Method Room Air Intake [place] [facility] [place] Sharemilker Required: No Allergies duloxetine Adverse Reaction (Intermediate, Verified 05/27/24 12:52) sedation Medication List - Last Reconciled 05/27/24 by Vani Euceda PA-C biotin (Hair, Skin and Nails (biotin)) mcg PO cholecalciferol (vitamin D3) 25 mcg PO DAILY [CPAP As directed] gabapentin 100 mg PO BEDTIME ibuprofen 600 mg PO Q6H PRN magnesium oxide 500 mg PO DAILY mecobalamin (vitamin B12) 5,000 mcg PO .every other day plant stanol devonte (Cholest Off Plus) mg PO Tobacco use date assessed: 01/26/24 Dental Screening Dental Screen Date: 01/26/24 HPI [facility] [place] HPI Details 58-year-old female with past medical history of hypercholesterolemia, obstructive sleep apnea, and nicotine dependence last seen by Dr. Pizarro 01/25/2022 for coming in for acute problem.? In review of the nose patient was seen in [facility] [place] after having a fall at home and twisting her right ankle, imaging of the foot and ankle were negative. Patient diagnosed with ankle sprain instructed to keep leg elevated, use pain medication as needed, and crutches for ambulation and discharged home. Patient states she was seen in the ED 6 weeks ago for the right ankle sprain. She was using crutches for a short period of time after being discharged. She has noted mild improvement in the ankle pain but is still having pain especially while walking and when standing for prolonged periods of time. She also mentions she has numbness and tingling in the foot and anterior aspect of the lower leg with prolonged use of the ankle which resolves with rest. She has been resting, icing and elevating the leg along with using the ankle brace. She also mentions she gets bruising in the ankle with prolonged use. [facility] Medical History Hematuria Anxiety Personal history of nicotine dependence Hypercholesterolemia Fibromyalgia Insomnia Allergic rhinitis Vitamin D deficiency Surgical History History of colonoscopy (~2016) Status post excision of lipoma (~2011) History of lithotripsy (~2015) History of tonsillectomy Family History Father Hypertension Multiple myeloma Mother Bladder cancer Brain cancer Maternal Grandmother Gastric cancer Paternal Grandfather Brain tumor Son In good health Son In good health Son In good health Brother In good health Brother In good health Social History Housing: House Alcohol intake: current Alcohol intake frequency: holidays/special occasions only Comment: once Q 3 months 1-3 drinks Patient Tobacco Use Status: Current everyday Tobacco user Tobacco use type: Cigarette Cigarette Packs Per Day: 0.5 Cigarettes Per Day: 10 Years Smoked: (onset 15yo, 1ppd x 41yrs, 40pyh, still smoking) 10 cigarettes a day e-Cigarette/Vaping Use: Never Used Second Hand Smoke Exposure: No service: No Current occupational status: employed Cognitive needs: No Hearing needs: No Vision needs: No Questionnaire Thrive Questionnaire Date Thrive assessed: 01/26/24 AUDIT C Alcohol Use Questionnaire (AUDIT-C) 1. How often do you have a drink containing alcohol?: Monthly or less 2. How many drinks containing alcohol do you have on a typical day when you are drinking?: 1 or 2 Total Score: 1 MUKUL-7 AMB Questionnaire MUKUL-7 Date MUKUL - 7 assessed: 01/26/24 Source: Developed by Drs. Jean Pierre Tiwari, Alejandra Bender, Sukhjinder Houston and colleagues, with an educational elisabet from [employer]. Review of Systems Const Denies body aches, Denies chills, Denies fever(s), Denies headache(s) and Denies poor appetite Eyes Reports no additional complaints ENT Denies dysphagia, Denies dizziness, Denies headache(s) and Denies odynophagia Card Denies chest pain, Denies syncope, Denies edema, Denies irregular heart rhythm, Denies lightheadedness and Denies dyspnea Resp Denies cough and Denies dyspnea GI Denies abdominal pain, Denies constipation, Denies dysphagia, Denies diarrhea, Denies nausea, Denies odynophagia and Denies vomiting Reports no additional complaints Musc Details: right ankle pain and swelling with occasional bruising and numbness. Reports abnormal gait Skin/Breast Reports system reviewed and no additional complaints, except as documented Neuro Reports abnormal gait, Denies dizziness, Denies syncope and Denies headache(s) Psych Reports no additional complaints Physical exam (Primary Care) Vital Signs: Oxygen Delivery Method Room Air 05/27/24 12:52 Tobacco/Smoking Status: Tobacco use Status Tobacco use date assessed 01/26/24 01/26/24 16:20 Patient Tobacco Use Status Current everyday Tobacco 01/26/24 16:52 Tobacco use type Cigarette 01/26/24 16:52 e-Cigarette/Vaping Use Never Used 01/26/24 16:52 Thrive Assessment: Date of Thrive Assessment Date Thrive assessed 01/26/24 01/26/24 16:20 Const General: cooperative, healthy appearing, comfortable and no acute distress Orientation/consciousness: patient oriented x3 HENMT Head: Yes normocephalic Ears: hearing grossly normal bilaterally General nose exam: Normal external nose present Eyes General: appearance normal, both eyes and all related structures Conjunctivae: conjunctivae normal Neck Neck: Yes full ROM and Yes no lymphadenopathy Resp Effort & Inspection: normal respiratory effort Auscultation: clear to auscultation bilaterally, no crackles, no rales, no rhonchi and no wheezes Cardio Rate: regular rate Rhythm: regular rhythm Peripheral pulses: dorsalis pedis present Skin General skin exam: no rashes or lesions noted Neuro General: patient oriented x3 Extrem Other: Pain to palpation of lateral malleolus without bruising or redness. No evidence of ankle instability. Negative Heredia test. Foot and ankle are nuerovascularly intact. General: Yes normal to inspection, Yes full ROM and No edema Psych Affect: normal affect Attitude: cooperative Insight: Good insight present (Psych) Judgement: Good judgement present (Psych) Assessment and Plan Assessment & Plan (1) Right ankle sprain: Code(s): S93.401A - Sprain of unspecified ligament of right ankle, initial encounter Qualifiers: Encounter type: subsequent encounter Involved ligament of ankle: unspecified ligament Qualified Code(s): S93.401D - Sprain of unspecified ligament of right ankle, subsequent encounter Plan: Foot and ankle appear to be neurovascularly intact. Additional XR is not indicated at this time. We will refer to PT for further treatment, continue to ambulate as tolerated. Patient agreed to reach out if symptoms worsen or continue to not improve. She was counseled on concerning symptoms and advised to follow up if she re-injures the ankle or she develops symptoms suggestive of DVT or has continued numbness without resolution. Work note with restrictions given. Plan This note was constructed using voice recognition software. While every effort has been made to ensure accuracy and counter cutter, still areas may have been included sometimes these areas may affect the content or meeting of the given symptoms. Total time spent caring for the patient today was 30 minutes. This includes time spent before the visit reviewing the chart, time spent during the visit, and time spent after the visit and documentation. Orders: Orders PT Evaluation and Treatment Today S93.401A - Sprain of unspecified ligament of right ankle, initial encounter Coding Level of Care Code Est Pt Level 4 (73531) Diagnoses Sprain of right ankle, unspecified ligament, subsequent encounter S93.401D Encounter type: subsequent encounter Involved ligament of ankle: unspecified ligament
== END 2024-05-27 13:38 | disposition home or self-care (01) ==
PROVIDERS: PCP Internal Medicine
DX: S93.401D Sprain of unspecified ligament of right ankle, subsequent encounter (principal)
CPT/HCPCS: 99214

== ENCOUNTER 2024-07-19 13:02 | Outpatient (REF) | payer OTHER, SELFPAY ==
--- NOTE | ~2024-07-19 | US_ITS ---
EXAMINATION: US RETROPERITONEAL COMPLETE (RENAL) CLINICAL INFORMATION: Other microscopic hematuria. COMPARISON: CT abdomen and pelvis 01/24/2022. Renal ultrasound 09/28/2018 and 10/13/2017. X-ray KUB 03/09/2016 and 08/27/2015. TECHNIQUE: Real-time imaging of the kidneys and bladder. FINDINGS: RIGHT KIDNEY: 9.9 x 4.5 x 5.0 cm (SAG x AP x TRV). The kidney is normal in size, contour, and echogenicity. Renal cortical thickness is normal. No renal calculi or hydronephrosis. A benign upper pole 2.0 cm Bosniak class I renal cyst is noted which requires no additional imaging or follow up. No solid renal masses are seen. LEFT KIDNEY: 9.3 x 5.1 x 5.3 cm (SAG x AP x TRV). The kidney is normal in size, contour, and echogenicity. Renal cortical thickness is normal. No calculi or focal parenchymal lesions. A dromedary hump is present, as can also be seen on the prior CT. No hydronephrosis. BLADDER: Partially distended. Bilateral ureteral jets are demonstrated. Prevoid bladder volume is 131 mL. Postvoid bladder volume is 6.6 mL. US/US retroperitoneal comp IMPRESSION: No significant abnormality is seen. A cause for the patient's hematuria has not been found. Electronically signed by: Aneesh Schuster MD 07/24/2024 03:50 PM EDT
== END 2024-07-19 13:03 | disposition home or self-care (01) ==
LOC: HO.US 13:02
PROVIDERS: PCP Internal Medicine; Visit Provider Urology
DX: R31.29 Other microscopic hematuria (principal)
CPT/HCPCS: 76770

== ENCOUNTER 2024-08-16 14:33 | Outpatient (AMB) | payer OTHER, SELFPAY ==
--- NOTE | 2024-08-16 14:53 | A.OFFVIS_ITS ---
Intake Visit Reasons: follow up/US(set) Intake Note: Patient is present for Ultrasound follow up Urology Med: None Antibiotic Allergy:none Fiberglass Boat Maker Required: No Accompanied by: Self / Same As Patient Allergies duloxetine Adverse Reaction (Intermediate, Verified 08/16/24 14:54) sedation HPI Comments Details: Syeda is a pleasant female. She is a patient Dr. Pizarro. She is seen for the following urologic conditions - microscopic hematuria Twelve month follow-up UA negative P.r.n. 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 07/28 Has anteverted uterus and cervical cuff is collapsing bladder down on to trigone. This creates irritation and small blood vessels on the bladder side likely causing microscopic hematuria. [facility] Medical History Hematuria Anxiety Personal history of nicotine dependence Hypercholesterolemia Fibromyalgia Insomnia Allergic rhinitis Vitamin D deficiency Surgical History History of colonoscopy (~2016) Status post excision of lipoma (~2011) History of lithotripsy (~2015) History of tonsillectomy Family History Father Hypertension Multiple myeloma Mother Bladder cancer Brain cancer Maternal Grandmother Gastric cancer Paternal Grandfather Brain tumor Son In good health Son In good health Son In good health Brother In good health Brother In good health Social History Housing: House Alcohol intake: current Alcohol intake frequency: holidays/special occasions only Comment: once Q 3 months 1-3 drinks Patient Tobacco Use Status: Current everyday Tobacco user Tobacco use type: Cigarette Cigarette Packs Per Day: 0.5 Cigarettes Per Day: 10 Years Smoked: (onset 15yo, 1ppd x 41yrs, 40pyh, still smoking) 10 cigarettes a day e-Cigarette/Vaping Use: Never Used Second Hand Smoke Exposure: No service: No Current occupational status: employed Cognitive needs: No Hearing needs: No Vision needs: No Review of Systems Const Denies chills and Denies fever(s) Card Reports no additional complaints and Denies syncope Resp Denies cough GI Denies abdominal pain and Denies heartburn Reports as per HPI and Denies change in libido Neuro Denies syncope Psych Denies change in libido Endo Denies change in libido Physical Exam Const General: cooperative, healthy appearing, comfortable and no acute distress Orientation/consciousness: patient oriented x3 HEENT Face and sinus: Yes normal facial exam Mouth: moist mucous membranes Neck Neck: Yes normal visual inspection, Yes full ROM and Yes trachea midline Chest Chest palpation & inspection: normal inspection of the chest Resp Effort & Inspection: normal respiratory effort, able to speak in complete sentences and no respiratory distress GI Inspection: Yes normal to inspection Back/Spine/Pelvis Cervical Spine: normal cervical lordosis Thoracic/Lumbar Spine: thoracic and lumbar spine normal to inspection Skin General skin exam: no rashes or lesions noted Neuro General: patient oriented x3, gait normal, tone normal and moves all extremities Extrem General: Yes normal to inspection and Yes capillary refill normal Assessment & Plan Assessment & Plan (1) Microscopic hematuria: Comment: Urology 2021 cystoscopy Code(s): R31.29 - Other microscopic hematuria Category: Medical Plan P.r.n. follow-up Patient Instructions: Imaging studies, laboratory and physical exam results were discussed and reviewed in detail. No major barriers to patient understanding were identified. An opportunity to ask questions regarding the treatment plan was provided. All questions were answered. The patient expressed understanding and agreement with the above treatment plan. The patient is aware they should contact our office by phone for worsening of their current condition or the appearance of new urologic symptoms. Compliance is encouraged with any medications and followup testing that is ordered. It is a privilege to participate in the urologic care of your patient. If you have any questions or concerns regarding treatment for the above conditions, or other urologic issues, please do not hesitate to contact me. The office telephone contact is [phone]. This note is constructed using voice recognition software. While every effort has been made to ensure accuracy keno terminal operator errors may have been included. Yours sincerely, Dr Jaron Nieto MD, [facility] - Urology Providers of Expert, Compassionate Care for the Genitourinary System Coding Level of Care Code Est Pt Level 3 (83406) Diagnoses Microscopic hematuria R31.29
== END 2024-08-16 15:35 | disposition home or self-care (01) ==
PROVIDERS: PCP Internal Medicine; Visit Provider Urology
DX: R31.29 Other microscopic hematuria (principal)
CPT/HCPCS: 99213

== ENCOUNTER → 2024-08-16 14:33 | Outpatient (BNVA) | payer OTHER, SELFPAY | PROVIDERS: PCP Internal Medicine; Visit Provider Urology ==

== ENCOUNTER 2024-12-09 15:42 | Outpatient (REF) | payer OTHER, SELFPAY ==
--- NOTE | ~2024-12-09 | XR_ITS ---
EXAMINATION: XR HAND/WRIST, RIGHT CLINICAL INFORMATION: S60.221A - Contusion of right hand, initial encounter COMPARISON: None available. TECHNIQUE: PA, lateral, and oblique views of the right hand and wrist. FINDINGS: There is a nondisplaced fracture distal radial metaphysis with mild dorsal angulation . There is intra-articular extension into the radiocarpal joint. Moderate dorsal soft tissue swelling is noted. No additional fractures are seen. XR/XR hand wrist RT IMPRESSION: Distal radial transverse fracture with dorsal angulation and moderate dorsal soft tissue swelling. There is intra-articular extension of the fracture. Electronically signed by: Sharad Peraza MD 12/09/2024 05:57 PM EST
== END 2024-12-09 15:43 | disposition home or self-care (01) ==
LOC: HO.HMGCX 15:42
PROVIDERS: PCP Internal Medicine; Visit Provider Nurse Practitioner Family
DX: S60.221A Contusion of right hand, initial encounter (principal)
CPT/HCPCS: 73110; 73130

== ENCOUNTER → 2024-12-09 16:17 | Outpatient (BNV) | payer OTHER, SELFPAY | PROVIDERS: PCP Internal Medicine; Visit Provider Radiology Diagnostic Radiology | DX: S52.321A Displaced transverse fracture of shaft of right radius, initial encounter for closed fracture (principal) | CPT/HCPCS: 73110; 73130 ==

== ENCOUNTER 2024-12-13 13:25 | Outpatient (REF) | payer OTHER, SELFPAY ==
--- NOTE | ~2024-12-13 | XR_ITS ---
EXAMINATION: XR WRIST 3 OR MORE VIEWS RIGHT HISTORY: M25.531 - Pain in right wrist COMPARISON: Comparison is made with the prior examination dated 12/09/2024. FINDINGS: Three views of the right hand are submitted. Osseous mineralization is normal. Again seen is a nondisplaced comminuted intra-articular fracture of the distal radius. Fracture lines remain visible. The joint spaces are preserved. There is diffuse mild soft tissue swelling. XR/XR wrist RT min 3V IMPRESSION: Nondisplaced comminuted intra-articular fracture of the distal radius without significant change. Electronically signed by: Jean Pierre Talavera MD 12/13/2024 02:29 PM MARLEE
== END 2024-12-13 13:26 | disposition home or self-care (01) ==
LOC: HO.HOSX 13:25
PROVIDERS: PCP Internal Medicine; Visit Provider Physician Assistant
DX: S52.501A Unspecified fracture of the lower end of right radius, initial encounter for closed fracture (principal); M25.531 Pain in right wrist
CPT/HCPCS: 73110

== ENCOUNTER 2024-12-13 13:25 | Outpatient (AMB) | payer OTHER, SELFPAY ==
--- NOTE | 2024-12-13 13:27 | MHC.OFFVIS ---
Vital Signs 12/13/24 13:34 Height 5 ft 3 in Weight 176 lb BMI 31.2 Intake Visit Reasons: FC - Right Distal Radius Fx - 12/09/24 Intake Note: Syeda is a 59 year old right hand dominant female who presents today for a fracture care visit of her right wrist. On 12/09/23 she slipped and fell on ice and landed one right right wrist. Patient was seen at the urgent care after the injury where she was placed in a splint. Patient currently reports that she is tolerating pain well with pain medication. denies numbness and tingling. Allergies duloxetine Adverse Reaction (Intermediate, Verified 12/09/24 16:02) sedation HPI HPI FC - Right Distal Radius Fx - 12/09/24: Details: Syeda is a 59 year old right hand dominant female who presents today for a fracture care visit of her right wrist. On 12/09/23 she slipped and fell on ice and landed one right right wrist. Patient was seen at the urgent care after the injury where she was placed in a splint. Patient currently reports that she is tolerating pain well with pain medication. denies numbness and tingling. [facility] Medical History (Updated 12/13/24 @ 15:37 by RUFUS Chaparro) Contusion of right hand Nicotine dependence, cigarettes, uncomplicated Hematuria Anxiety Hypercholesterolemia Fibromyalgia Insomnia Allergic rhinitis Vitamin D deficiency Surgical History History of colonoscopy (~2016) Status post excision of lipoma (~2011) History of lithotripsy (~2015) History of tonsillectomy Family History Father Hypertension Multiple myeloma Mother Bladder cancer Brain cancer Maternal Grandmother Gastric cancer Paternal Grandfather Brain tumor Son In good health Son In good health Son In good health Brother In good health Brother In good health Social History Housing: House Alcohol intake: current Alcohol intake frequency: holidays/special occasions only Comment: once Q 3 months 1-3 drinks Patient Tobacco Use Status: Current everyday Tobacco user Tobacco use type: Cigarette Cigarette Packs Per Day: 0.5 Cigarettes Per Day: 10 Years Smoked: (onset 15yo, 1ppd x 41yrs, 40pyh, still smoking) 10 cigarettes a day e-Cigarette/Vaping Use: Never Used Second Hand Smoke Exposure: No service: No Current occupational status: employed Cognitive needs: No Hearing needs: No Vision needs: No Review of Systems Const All systems reviewed & are unremarkable except as noted in HPI and below Physical Exam Vital Signs: BMI result Body Mass Index 31.2 Extrem Other: Patient is alert, oriented, and in no acute distress. Neuro: Normal sensation of the tips of all digits of the right hand at this time Vascular: Cap refill brisk Pain: Patient reports significant tenderness to palpation about the dorsal aspect of the right wrist No pain with range of motion of the fingers of the right hand ROM: Patient is able to make a closed fist and extend all digits of the right hand fully and without difficulty Skin: No lacerations or abrasions. General: Yellowed ecchymosis noted on the volar aspect of the patient's right wrist There is also [id number] edema noted circumferentially about the patient's right wrist No erythema or other evidence of infection Psych: Appears grossly normal Affect normal Attitude cooperative Results Reviewed Results Reviewed: X-rays obtained in the office today and independently reviewed by me, Markel Larios PA-C, demonstrate displaced fracture of the right distal radius with intra-articular split with approximately 10 degrees of apex volar angulation. Assessment & Plan Assessment & Plan (1) Fracture of right distal radius: Code(s): S52.501A - Unspecified fracture of the lower end of right radius, initial encounter for closed fracture Category: Medical Plan 1. Right distal radius fracture Date of injury 12/09/2024 I educated the patient about the condition. I discussed both operative and nonoperative treatment options. The patient would like to proceed with surgery. The risks and benefits of operative treatment were discussed with the patient and the patient wishes to proceed with surgery. These risks include, but are not limited to, risk of damage to blood vessels, nerves, tendons, infection, recurrence, incomplete relief of preoperative symptoms, persistent pain, possible need for further surgery, and the risks associated with regional blocks and/or anesthesia. Plan is to take the patient to the operating room at some point in the next few weeks for the following procedures: 1. Right distal radius ORIF under general All of the preoperative paperwork including the consent was discussed today. All of the patient's questions were answered in the clinic today. The patient understands that they will be in contact with our surgery scheduler to discuss scheduling their procedure. Patient denies diabetes, blood thinners, asthma, heart issues, lung issues, kidney issues, or current smoking. Orders: Orders XR wrist RT min 3V Today M25.531 - Pain in right wrist Medications: Refilled ibuprofen 600 mg PO Q6H PRN 28 tabs 0RF fever or pain Coding Level of Care Code New Pt Level 4 (71790) Diagnoses Fracture of right distal radius S52.501A
[2024-12-13 13:34] VITALS: BMI 31.2
--- OUTSIDE RECORDS SUMMARY | 2024-12-13 13:56 | XMS_ITS ---
Author Organization [facility] Address [address] [place] [address] Care Team Providers Care Aix Administrator Name Role Phone RADHA ELISE M.D. 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 Physical Encounters Encounter Location Date Provider Diagnosis [facility] [address] [place] [address] 08/30/2024 ALISSA WAN Plan Of Treatment Next Appt Details Provider Name:ALISSA Sol, 09/12/2025 01:00:00 PM, [address], [address], [place], [address], Progress Notes * ORLANDO GALANOB:1965 (59 yo F)Acc No.[id number]:08/30/2024 PROGRESS NOTES Patient:?ELOY GALAN Provider:?ALISSA WAN MD :1965???Age:59 Y???Sex:Female D ate:08/30/2024 Address:[address] [place] [address] , [address], [id number] Pcp:RADHA ELISE M.D. Subjective: * Chief Complaints: * ???1. 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 * Medical History:? Objective: * Vitals:? Assessment: Plan: * Treatment: * Images: Billing Information: * Visit Code:? * Procedure Codes:? * Electronic signature of ALISSA WAN MD on 12/13/2024 at 01:56 PM EST Sign off status: Pending * Provider:?ALISSA WAN MD Date:?2023 Generated for Nena dale/Neil/Malathi on:?12/13/2024 01:56 PM EST
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
== END 2024-12-13 14:52 | disposition home or self-care (01) ==
PROVIDERS: PCP Internal Medicine; Visit Provider Physician Assistant
DX: S52.501A Unspecified fracture of the lower end of right radius, initial encounter for closed fracture (principal); W00.0XXA Fall on same level due to ice and snow, initial encounter
CPT/HCPCS: 99204

== ENCOUNTER → 2024-12-13 13:37 | Outpatient (BNV) | payer OTHER, SELFPAY | PROVIDERS: PCP Internal Medicine; Visit Provider Radiology Diagnostic Radiology | DX: M25.531 Pain in right wrist (principal) | CPT/HCPCS: 73110 ==

== ENCOUNTER 2024-12-19 07:54 | Day surgery (SDC) | payer OTHER, SELFPAY ==
[2024-12-17 11:44] VITALS: BMI 31.2
--- NOTE | 2024-12-18 08:33 | P.CONAN_ITS ---
Documented by User: Carissa Bell NP 12/18/24 08:33 HPI - Anesthesia Eval Consult details Narrative: 59yo F for Right Wrist ORIF PMFSH Active Problems Active Problems: All Active Problems Fracture of right distal radius (Acute) Contusion of right hand (Acute) Nicotine dependence, cigarettes, uncomplicated (Acute) Right ankle sprain (Acute) Peripheral neuropathy (Acute) Microscopic hematuria (Acute) Obstructive sleep apnea (adult) (pediatric) (Acute) Insomnia (Acute) Hypercholesterolemia (Acute) Past Medical History Medical History Contusion of right hand Nicotine dependence, cigarettes, uncomplicated Hematuria Anxiety Hypercholesterolemia Fibromyalgia Insomnia Allergic rhinitis Vitamin D deficiency Family History Family History Father Hypertension Multiple myeloma Mother Bladder cancer Brain cancer Maternal Grandmother Gastric cancer Paternal Grandfather Brain tumor Son In good health Son In good health Son In good health Brother In good health Brother In good health Surgical History Surgical History History of colonoscopy (~2016) Status post excision of lipoma (~2011) History of lithotripsy (~2015) History of tonsillectomy Social History Social History Housing: House Alcohol intake: current Alcohol intake frequency: holidays/special occasions only Comment: once Q 3 months 1-3 drinks Patient Tobacco Use Status: Current everyday Tobacco user Tobacco use type: Cigarette Cigarette Packs Per Day: 0.5 Cigarettes Per Day: 10 Years Smoked: (onset 15yo, 1ppd x 41yrs, 40pyh, still smoking) 10 cigarettes a day e-Cigarette/Vaping Use: Never Used Second Hand Smoke Exposure: No Use of substances other than those prescribed or required for medical reasons: No Are you DNR?: No Advance Directives: No Advance Directives Information Provided: Yes Nutrition Risks: No Nutritional Risk Patient : No service: No Current occupational status: employed Cognitive needs: No Hearing needs: No Vision needs: No Meds Allergies Allergy/AdvReac Type Severity Reaction Status Date / Time duloxetine AdvReac Intermediate sedation Verified 12/09/24 16:02 Active Medications: Current Medications Cefazolin Sodium/Dextrose (Ancef) 2 gm in 50 mls @ 100 mls/hr IV PREOP ONE Stop: 12/19/24 06:29 Home Medications ?Medication ?Instructions ?Recorded ?Confirmed ?Last Taken ?Type cholecalciferol (vitamin D3) 25 25 mcg PO DAILY 01/08/21 05/27/24 Unknown History mcg (1,000 unit) capsule magnesium oxide 500 mg capsule 500 mg PO DAILY 01/20/23 05/27/24 Unknown History mecobalamin (vitamin B12) 5,000 5,000 mcg PO .every other day 01/26/24 05/27/24 Unknown History mcg disintegrating tablet Exam Height,Weight and Vital Signs: Height 5 ft 3 in Weight 79.832 kg Assessment and Plan Assessment Anesthesia Assessment: Chart Reviewed Documented by User: Yesica Hilario MD 12/19/24 09:37 [facility] Past Medical History Medical History Contusion of right hand Nicotine dependence, cigarettes, uncomplicated Hematuria Anxiety Hypercholesterolemia Fibromyalgia Insomnia Allergic rhinitis Vitamin D deficiency Family History Family History Father Hypertension Multiple myeloma Mother Bladder cancer Brain cancer Maternal Grandmother Gastric cancer Paternal Grandfather Brain tumor Son In good health Son In good health Son In good health Brother In good health Brother In good health Family history of problems with anesthesia: No Surgical History Surgical History History of colonoscopy (~2016) Status post excision of lipoma (~2011) History of lithotripsy (~2015) History of tonsillectomy History of Problems with Anesthesia: No Social History Social History Housing: House Alcohol intake: current Alcohol intake frequency: holidays/special occasions only Comment: once Q 3 months 1-3 drinks Patient Tobacco Use Status: Current everyday Tobacco user Tobacco use type: Cigarette Cigarette Packs Per Day: 0.5 Cigarettes Per Day: 10 Years Smoked: (onset 15yo, 1ppd x 41yrs, 40pyh, still smoking) 10 cigarettes a day e-Cigarette/Vaping Use: Never Used Second Hand Smoke Exposure: No Use of substances other than those prescribed or required for medical reasons: No Are you DNR?: No Advance Directives: No Advance Directives Information Provided: Yes Nutrition Risks: No Nutritional Risk Patient : No service: No Current occupational status: employed Cognitive needs: No Hearing needs: No Vision needs: No Meds Allergies Allergy/AdvReac Type Severity Reaction Status Date / Time duloxetine AdvReac Intermediate sedation Verified 12/09/24 16:02 Home Medications ?Medication ?Instructions ?Recorded ?Confirmed ?Last Taken ?Type cholecalciferol (vitamin D3) 25 25 mcg PO DAILY 01/08/21 05/27/24 Unknown History mcg (1,000 unit) capsule magnesium oxide 500 mg capsule 500 mg PO DAILY 01/20/23 05/27/24 Unknown History mecobalamin (vitamin B12) 5,000 5,000 mcg PO .every other day 01/26/24 05/27/24 Unknown History mcg disintegrating tablet Exam Airway Mallampati Class: III TM Dist: >3cm Neck ROM: Full Heart: rrr Lungs: cta Assessment and Plan Assessment Anesthesia Assessment: Anesthesia Plan Discussed Final Anesthetic Review Family History of Problems with Anesthesia: No History of Problems with Anesthesia: No NPO: Yes ASA Class: III Final Preanesthetic Review: No Changes in Pt Med Stat, Meds/Allgs Chart Reviewed, Consent Obtained/Reviewed and Anes Risks/Benef Reviewed Patient Risk: Intermediate Procedure Risk: Intermediate Anesthetic Plan Anesthetic Plan: MAC: Disposition: Standard PACU
[2024-12-19] VITALS (7 sets, daily range): BP systolic 104–133; BP diastolic 32–78; PULSE 68–90; RESP 12–18; TEMP 36.1–36.4; O2SAT 94–98; BMI 32.6
--- NOTE | ~2024-12-19 | FL_ITS ---
EXAMINATION: FL GUIDANCE ONLY HISTORY: OR Guidance Mini C-Arm COMPARISON: Correlation is made to plain films of the right wrist dated 12/13/2024. TECHNIQUE: Fluoroscopy time: 35.9 and 2 seconds. Cumulative Dose: 1.2734 mGy. DAP: 0.0770 mGym2 Images: 6. FINDINGS: Images demonstrate internal fixation of the previously seen transverse fracture of the distal radius with a sideplate and multiple orthopedic screws. FL/FL guidance in OR IMPRESSION: Fluoroscopy during procedure. Please see procedure report for additional information. Electronically signed by: Jean Pierre Talavera MD 12/19/2024 02:55 PM MARLEE
--- NOTE | 2024-12-19 07:42 | MHC.SHP ---
Pre-Procedural Eval Section A - 24 Hr Update-Section A only Date of Service: 12/19/24 The patient is an INPATIENT: No Changes since office visit: No Cold of Flu in the past 2 weeks, No New Medical Problems, No Changes in Medication and No Patient answered all questions The patient has been examined within 24 hours of the surgical procedure. The History & Physical has been completed within 30 days and I have reviewed it.: Yes Section B - Complete if H&P > 30 days Chief Complaint: Unspecified fracture of the lower end of right Allergies: Allergies Allergy/AdvReac Type Severity Reaction Status Date / Time duloxetine AdvReac Intermediate sedation Verified 12/09/24 16:02 Plan I have reviewed the history and physical and performed a pertinent physical examination on my patient. No changes have occurred unless specified. Time Spent With Patient Time: Total time managing care of this patient today ____ minutes.
--- NOTE | 2024-12-19 07:42 | W.PM.OPN ---
Operative Note Operative Note Date of Service: 12/19/24 Narrative: Operative Note Narrative: Preop diagnosis: 1. Right Distal radius fracture, intra-articular Postop diagnosis: Same Procedure: 1. Right Distal radius fracture open reduction internal fixation, 2 part intra-articular Surgeon: Pari Mckinney MD Textile Conversion Manager: Markel HOOPER Anesthesia: General anesthesia plus regional block Findings: Intra-articular distal radius fracture Implants: A 3 hole Accu Med volar locking plate, with 4 X 2.3 mm locking pegs/screws, and 3 3.5 mm cortical screws Tourniquet time: 37 minutes EBL: 5.0 ml Specimen: None Drains: None Complications: None Disposition: Brought to the recovery room in stable condition Plan: Follow-up in 10-14 days for wound check, suture removal and postop radiographs The patient will be placed in either a volar wrist splint. Encouraged no lifting of anything heavier than a cell phone. Please encourage active and passive range of motion of the digits. Follow-up at 4-5 weeks postop for repeat radiographs. Indications: The patient is a 59 year old woman with a right distal radius fracture . The risks and benefits of operative treatment, including but not limited to risk of damage to blood vessels, nerves, tendons, infection, recurrence, persistent pain or numbness, incomplete resolution of preoperative symptoms, or need for further surgery were discussed with the patient and they wished to proceed with surgery. Procedure: Once consent was obtained patient was brought back to the operating suite and placed in the operating table in a supine position. A regional block was performed by the anesthesia team. Perioperative antibiotics and anesthesia was administered by the anesthesia team. A tourniquet was applied to the proximal aspect of the right upper extremity and the limb was prepped and draped in a standard surgical fashion. The limb was elevated exsanguinated with Esmarch bandage and the tourniquet inflated to 250 mm of mercury for a total tourniquet time of 37 minutes. The FluoroScan was used throughout the case to assess our reduction, and facilitate implant placement. A gentle closed reduction was 1st performed on the patient's right distal radius fracture. Was assessed radiographically before proceeding with the reduction internal fixation. I then made an 8 cm longitudinal incision over the distal aspect of the flexor carpi radialis tendon. The incision was made through the skin to the subcutaneous tissue using a 15. Blade. Then carefully dissected down to flexor carpi radialis tendon she tenotomy scissors. The FCR tendon sheath was then incised longitudinally using tenotomy scissors under direct visualization. The FCR tendon was then retracted ulnarly. I then made a longitudinal incision in the volar forearm fascia through the floor of FCR tendon sheath using tenotomy scissors under direct visualization. I identified the interval between the radial artery and the flexor tendons. This interval was developed further with my index finger, releasing some of the muscular fibers of the flexor pollicis longus. A dull weatlander retractor was then placed. I then created an ulnarly based flap of the pronator quadratus by releasing the radial and distal edges using a 15. Blade. A Cuadra elevator was used to elevate the pronator quadratus from the volar surface of the distal radius. This then revealed to us our distal radius fracture. This was a very distal fracture with a coronal split through the articular surface. An open reduction was then performed on our distal radius fracture. I then placed a short narrow 3 hole Accu Med volar locking plate on the volar surface of the distal radius. I placed a single K-wire through the distal aspect of the plate and into the distal radius. This was assessed using fluoroscopic images. I was satisfied with the placement of our plate. I then placed 4 X 2.3 mm locking screws/pegs in the distal aspect of the plate and distal radius by 1st drilling bicortically with a 2.0 mm drill bit, measuring with a depth gauge, and placing the appropriate length locking screws/pegs. The placement of our plate and screws was then assessed again using fluoroscopic images. The once satisfied with the placement of the volar locking plate and screws on the distal aspect of the distal radius, the plate was then reduced to the shaft of the radius. I then placed 3 x 3.5 mm cortical screws to the proximal aspect of the plate and into the shaft of the radius. This was done by 1st drilling bicortically with a 2.8 mm drill bit, measuring with a depth gauge, and placing the appropriate length screw. Final radiographs were then obtained. The DRUJ was assessed and found to be stable on exam. I was satisfied with our reduction and placement of all implants. At this point the wound was irrigated with normal saline. The pronator quadratus was reduced back over the volar locking plate using some 3-0 Vicryl suture material. The tourniquet was then deflated and hemostasis was obtained with a brief period of local pressure and bipolar monopolar electrocautery. The subcutaneous layer was then reapproximated using some 4-0 Vicryl suture, and the skin edges were reapproximated using some 5 0 Prolene suture. The wound was then infiltrated with some 1% lidocaine with epinephrine postop pain control. A sterile dressing and a short dorsal splint allowing for active flexion and extension of the digits was applied. The patient appears to have tolerated the procedure well and with no complications. All digits were well vascularized conclusion of the case.
--- OUTSIDE RECORDS SUMMARY | 2024-12-19 07:58 | XMS_ITS ---
Author Organization [facility] Address [address] [place] [address] Care Team Providers Care Low Altitude Air Defense Officer Name Role Phone RADHA ELISE M.D. Primary Care Provider ALISSA Oden Unavailable [phone] REASON FOR VISIT Annual SET UP PERSON Physical Encounters Encounter Location Date Provider Diagnosis [facility] [address] [place] [address] 08/30/2024 ALISSA WAN Plan Of Treatment Next Appt Details Provider Name:ALISSA Sol, 09/12/2025 01:00:00 PM, [address], [address], [place], [address], Progress Notes * ORLANDO GALANOB:1965 (59 yo F)Acc No.[id number]:08/30/2024 PROGRESS NOTES Patient:?ELOY GALAN Provider:?ALISSA WAN MD :1965???Age:59 Y???Sex:Female D ate:08/30/2024 Address:[address] [place] [address] , [address], [facility] Pcp:RADHA ELISE M.D. Subjective: * Chief Complaints: * ???1. Annual SET UP PERSON Physical. * Medical History:? Objective: * Vitals:? Assessment: Plan: * Treatment: * Images: Billing Information: * Visit Code:? * Procedure Codes:? * Electronic signature of ALISSA WAN MD on 12/19/2024 at 07:57 AM EST Sign off status: Pending * Provider:?ALISSA WAN MD Date:?2023 Generated for Nena dale/Neil/Malathi on:?12/19/2024 07:57 AM EST
--- OUTSIDE RECORDS SUMMARY | 2024-12-19 07:58 | XMS_ITS ---
Author Organization [facility] Address [address] [place] [address] Care Team Providers Care Claims Specialist Name Role Phone RADHA ELISE M.D. 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 No Vital Signs Temperature 97.3 degrees Fahrenheit 08/24/20 23 Blood pressure systolic 108 mm Hg 08/24/20 23 Blood pressure diastolic 70 mm Hg 023 Height 62.25 in 08/24/2023 Weight 167 lbs 08/24/2023 BMI 30.30 kg/m2 08/24/2023 Encounters Encounter Location Date Provider Diagnosis [facility] [address] [place] [address] 08/24/2023 ALISSA WAN Encounter for gynecological examination [...] Follow Up: 1 Year, Reason: Y early State Epidemiologist Exam Provider Name:ALISSA Sol, 09/12/2025 01:00:00 PM, [address], [address], [place], [address], Progress Notes * ORLANDO GALANOB:1965 (58 yo F)Acc No.[id number]:08/24/2023 PROGRESS NOTES Patient:?SYEDA GALAN Provider:?ALISSA WAN MD :1965???Age:58 Y???Sex:Female D ate:08/24/2023 Address:[address] [place] [address] , [address], [facility] Pcp:RADHA ELISE M.D. Subjective: * Chief Complaints: * ???Annual THEOLOGY TEACHER Physical * HPI: ???Constitutional:? 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 ? She has been in state [...] has a physically active job. * ROS:?Annual State Epidemiologist Exam ROS:?Bowel habit changes?denies.?Bladder symptoms?denies.?Vaginal discharge, unusual?denies.?Vaginal itch or odor?denies.?weight or appetite changes?denies.?Chest pains, SOB?denies.?depression?denies.?Breast:?Denies?Breast lump.?Denies?Nipple discharge.?Hematology:?Denies?Swollen glands.?Skin:?Patient denies?changing moles.?Psychiatric:?Denies?Anxiety.? * Medical History:? * State Epidemiologist History:?/ Para?/3.?Sexual activity?not currently sexually active.?Last Pap Smear:?08/04/2021 NIL,NEGHPV, 08/17 NIL, neg HR HPV.?Mammogram:?01/13/23 < 50% density, 01/2022 PER PT, 01/2021, [facility], 04/2016 NEG.?Abnormal Pap Smear:?None.?LMP and menses?02/18/2017.?History of [...] with: alone. ?Marital status: single. 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 ?Pets: dogs: 1 black lab mix/great pyrenese. [...] no acute distress, well developed, well nourished, roll grinder operator present in room.?HEAD:?normocephalic, atraumatic.?NECK/THYROID:?neck supple, full range [...] muscle mass and strength. 'Sarco' is the Malay word referring to flesh, and 'penia' means [...] * Follow Up:?1 Year (Reason: Y early State Epidemiologist Exam) * Images: Billing Information: * Visit Code:? 17919 Preventive Care Est Pt. Age 40-64. * Procedure Codes:? 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 She has been in state of [...] General Examination GENERAL APPEARANCE: in no ac [place] distress, well developed, well nourished, roll grinder operator present in room HEAD: normocephalic, atrau matic [...]
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
--- OUTSIDE RECORDS SUMMARY | 2024-12-19 07:58 | XMS_ITS ---
Author Organization [facility] Address [address] [place] [address] Care Team Providers Care Switchboard Troubleshooter Name Role Phone RADHA ELISE M.D. Primary Care Provider UnavailALISSA Apple Unavailable [phone] Allergies No Known Allergies REASON FOR VISIT Annual BAG BLEACHER Physical Medications Medication SIG (Take, Route, Frequency, [...] quitting? Thinking about q uitting Vital Signs Temperature 98.0 degrees Fahrenheit 09/06/20 24 Blood pressure systolic 106 mm Hg 09/06/20 24 Blood pressure diastolic 68 mm Hg 024 Height 62.25 in 09/06/2024 Weight 179 lbs 09/06/2024 BMI 32.47 kg/m2 09/06/2024 Encounters Encounter Location Date Provider Diagnosis [facility] [address] [place] [address] 09/06/2024 ALISSA WAN Encounter for gynecological examination [...] Follow Up: 1 Year, Reason: Y early Drawer Waxer Exam Provider Name:ALISSA Sol, 09/12/2025 01:00:00 PM, [address], [address], [place], [address], Progress Notes * ORLANDO GALANOB:1965 (59 yo F)Acc No.[id number]:09/06/2024 PROGRESS NOTES Patient:?SYEDA GALAN Provider:?ALISSA WAN MD :1965???Age:59 Y???Sex:Female D ate:09/06/2024 Address:[address] , [address], [facility] Pcp:RADHA ELISE M.D. Subjective: * Chief Complaints: * ???Annual BAG BLEACHER Physical * HPI: ???Constitutional:?Syeda is a 59yo with LMP 2017 who presents for her yearly destination coordinator exam. ? She has been in state [...] cancer. Her last mammogram was 01/15/2024 at [facility] - normal per patient. ? She does not have a family history of colon cancer. She a has had a colonoscopy. The last colonoscopy was 12/12/16. ? The patient does not exercise since her sprained ankles. She walks her dog, and has a physically active job. * ROS:?Annual Drawer Waxer Exam ROS:?Bowel habit changes?denies.?Bladder symptoms?denies.?Vaginal discharge, unusual?denies.?Vaginal itch or odor?denies.?weight or appetite changes?denies.?Chest pains, SOB?denies.?depression?denies.?Breast:?Denies?Breast lump.?Denies?Nipple discharge.?Hematology:?Denies?Swollen glands.?Skin:?Patient denies?changing moles.?Psychiatric:?Admits?Anxiety,?she just pushes through .? * Medical History:? * Drawer Waxer History:?/ Para?3.?Sexual activity?not currently sexually active.?Last Pap Smear:?08/04/2021 NIL,NEGHPV, 08/17 NIL, neg HR HPV.?Mammogram:?01/13/23 < 50% density, 01/2022 PER PT, 01/2021, [facility], 04/2016 NEG.?Abnormal Pap Smear:?None.?LMP and [...] well Brother - Aneesh - 1978 - [facility]. * Social History:?Tobacco Use:?Tobacco use other [...] with: alone. ?Marital status: single. 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 ?Pets: dogs: 1 black lab mix/great pyrenese. [...] no acute distress, well developed, well nourished, microsoft exchange architect present in room.?HEAD:?normocephalic, atraumatic.?NECK/THYROID:?neck supple, full range [...] * Follow Up:?1 Year (Reason: Y early Drawer Waxer Exam) * Images: Billing Information: * Visit Code:? 75819 Preventive Care Est Pt. Age 40-64. * Procedure Codes:? 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 She has been in state of [...] cancer. Her last mammogram was 01/15/2024 at [facility] - normal per patient. She does not have a family history of colon cancer. She a has had a colonoscopy. The last colonoscopy was 12/12/16. The patient does not exercise since her sprained ankles. She walks her dog, and has a physically active job. Examination Category Sub-Category Detail Notes Category Not es General Examination GENERAL APPEARANCE: in no ac [place] distress, well developed, well nourished, microsoft exchange architect present in room HEAD: normocephalic, atrau matic [...]
[2024-12-19] MEDS: Lactated Ringers 1,000 ML 100 ML IVCONT (09:05)
== END 2024-12-19 12:24 | disposition home or self-care (01) ==
PROVIDERS: PCP Internal Medicine; Visit Provider Orthopaedic Surgery
PROC: (CPT 25608; principal; 2024-12-19 09:50)
DX: S52.571A Other intraarticular fracture of lower end of right radius, initial encounter for closed fracture (principal); S60.221A Contusion of right hand, initial encounter; W00.0XXA Fall on same level due to ice and snow, initial encounter; Y93.01 Activity, walking, marching and hiking; Y92.9 Unspecified place or not applicable; Y99.9 Unspecified external cause status; J30.9 Allergic rhinitis, unspecified; E55.9 Vitamin D deficiency, unspecified; M79.7 Fibromyalgia; E78.00 Pure hypercholesterolemia, unspecified; R31.9 Hematuria, unspecified; Z87.442 Personal history of urinary calculi; Z79.899 Other long term (current) drug therapy; Z88.8 Allergy status to other drugs, medicaments and biological substances; F17.210 Nicotine dependence, cigarettes, uncomplicated; Z98.890 Other specified postprocedural states
CPT/HCPCS: 25608; C1713; J0131; J0665; J0690; J1100; J2003; J2250; J2405; J2704

== ENCOUNTER → 2024-12-19 07:54 | Outpatient (BNV) | payer OTHER, SELFPAY | PROVIDERS: PCP Internal Medicine; Visit Provider Orthopaedic Surgery | DX: S52.571A Other intraarticular fracture of lower end of right radius, initial encounter for closed fracture (principal) | CPT/HCPCS: 25608 ==

== ENCOUNTER 2025-01-01 09:46 | Outpatient (REF) | payer OTHER, SELFPAY ==
--- NOTE | ~2025-01-01 | XR_ITS ---
EXAMINATION: XR WRIST 3 OR MORE VIEWS RIGHT HISTORY: M25.531 - Pain in right wrist COMPARISON: Comparison is made with the prior examination dated 12/13/2024. FINDINGS: Three views of the right wrist are submitted. Osseous mineralization is normal. The patient is status post internal fixation of the previously seen comminuted intra-articular fracture of the distal radius with a sideplate and multiple orthopedic screws. The joint spaces are preserved. There is persistent soft tissue swelling. XR/XR wrist RT min 3V IMPRESSION: Internal fixation of the previously seen comminuted intra-articular fracture of the distal radius. Electronically signed by: Jean Pierre Talavera MD 01/02/2025 07:53 AM MARLEE
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
--- OUTSIDE RECORDS SUMMARY | 2025-01-01 11:23 | XMS_ITS ---
Author Organization [facility] Address [address] [place] [address] Care Team Providers Care Correspondence Section Supervisor Name Role Phone RADHA ELISE M.D. Primary Care Provider UnavailALSISA Apple Unavailable [phone] Allergies No Known Allergies REASON FOR VISIT Annual MIXER DIAMOND POWDER Physical Medications Medication SIG (Take, Route, Frequency, [...] 09/06/2024 Encounters Encounter Location Date Provider Diagnosis [facility] [address] [place] [address] 09/06/2024 ALISSA WAN Encounter for gynecological examination [...] Follow Up: 1 Year, Reason: Y early Shot Lighter Exam Provider Name:ALISSA Sol, 09/12/2025 01:00:00 PM, [address], [address], [place], [address], Progress Notes * ORLANDO GALANOB:1965 (59 yo F)Acc No.[id number]:09/06/2024 PROGRESS NOTES Patient:?SYEDA GALAN Provider:?ALISSA WAN MD :1965???Age:59 Y???Sex:Female D ate:09/06/2024 Address:[address], [facility] Pcp:RADHA ELISE M.D. Subjective: * Chief Complaints: * ???Annual MIXER DIAMOND POWDER Physical * HPI: ???Constitutional:?Syeda is a 59yo with LMP 2017 who presents for her yearly him director exam. ? She has been in state [...] cancer. Her last mammogram was 01/15/2024 at [facility] - normal per patient. ? She does not have a family history of colon cancer. She a has had a colonoscopy. The last colonoscopy was 12/12/16. ? The patient does not exercise since her sprained ankles. She walks her dog, and has a physically active job. * ROS:?Annual Shot Lighter Exam ROS:?Bowel habit changes?denies.?Bladder symptoms?denies.?Vaginal discharge, unusual?denies.?Vaginal itch or odor?denies.?weight or appetite changes?denies.?Chest pains, SOB?denies.?depression?denies.?Breast:?Denies?Breast lump.?Denies?Nipple discharge.?Hematology:?Denies?Swollen glands.?Skin:?Patient denies?changing moles.?Psychiatric:?Admits?Anxiety,?she just pushes through .? * Medical History:? * Shot Lighter History:?/ Para?3.?Sexual activity?not currently sexually active.?Last Pap Smear:?08/04/2021 NIL,NEGHPV, 08/17 NIL, neg HR HPV.?Mammogram:?01/13/23 < 50% density, 01/2022 PER PT, 01/2021, [facility], 04/2016 NEG.?Abnormal Pap Smear:?None.?LMP and menses?02/18/2017.?History of [...] well Brother - Aneesh - 1978 - [facility]. * Social History:?Tobacco Use:?Tobacco use other than [...] with: alone. ?Marital status: single. 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 ?Pets: dogs: 1 black lab mix/great pyrenese. [...] no acute distress, well developed, well nourished, airplane electrical repairer present in room.?HEAD:?normocephalic, atraumatic.?NECK/THYROID:?neck supple, full range [...] * Follow Up:?1 Year (Reason: Y early Shot Lighter Exam) * Images: Billing Information: * Visit Code:? 87424 Preventive Care Est Pt. Age 40-64. * Procedure Codes:? * Sign off status: Completed true * Provider:?ALISSA WAN MD Date:?2023 Generated for Nena dale/Neil/eTransmitting on:?01/01/2025 11:23 AM EST History and Physical Notes * HPI (History of Present Illness) Category Sub-Category Detail Notes Category Not es Constitutional Syeda is a 59yo with LMP 2017 who presents for her yearly him director exam. She has been in state of [...] cancer. Her last mammogram was 01/15/2024 at [facility] - normal per patient. She does not have a family history of colon cancer. She a has had a colonoscopy. The last colonoscopy was 12/12/16. The patient does not exercise since her sprained ankles. She walks her dog, and has a physically active job. Examination Category Sub-Category Detail Notes Category Not es General Examination GENERAL APPEARANCE: in no ac belkofski distress, well developed, well nourished, airplane electrical repairer present in room HEAD: normocephalic, atrau matic [...]
--- OUTSIDE RECORDS SUMMARY | 2025-01-01 11:23 | XMS_ITS ---
Author Organization [facility] [email or web address] [facility] Address [address] [place] [address] Care Team Providers Care Tenterer Name Role Phone RADHA ELISE M.D. Primary Care Provider ALISSA Oden Unavailable [phone] REASON FOR VISIT Annual ADMISSIONS DIRECTOR Physical Encounters Encounter Location Date Provider Diagnosis [facility] [email or web address] [address] [place] [address] 08/30/2024 ALISSA WAN Plan Of Treatment Next Appt Details Provider Name:ALISSA Sol, 09/12/2025 01:00:00 PM, [address], [address], [place], [address], Progress Notes * ORLANDO GALANOB:1965 (59 yo F)Acc No.[id number]:08/30/2024 PROGRESS NOTES Patient:?ELOY GALAN Provider:?ALISSA WAN MD :1965???Age:59 Y???Sex:Female D ate:08/30/2024 Address:[address] [place] [address] , [address], [facility] Pcp:RADHA ELISE M.D. Subjective: * Chief Complaints: * ???1. Annual ADMISSIONS DIRECTOR Physical. * Medical History:? Objective: * Vitals:? Assessment: Plan: * Treatment: * Images: Billing Information: * Visit Code:? * Procedure Codes:? * Electronic signature of ALISSA WAN MD on 01/01/2025 at 11:23 AM EST Sign off status: Pending * Provider:?ALISSA WAN MD Date:?2023 Generated for Nena dale/Neil/Malathi on:?01/01/2025 11:23 AM EST
--- OUTSIDE RECORDS SUMMARY | 2025-01-01 11:23 | XMS_ITS ---
Author Organization [facility] [employer] [facility] Address [address] [place] [address] Care Team Providers Care Associate Attorney Name Role Phone RADHA ELISE M.D. Primary Care Provider UnavailALISSA Apple Unavailable [phone] Allergies No Known Allergies REASON FOR VISIT Annual ATTENDANT HONOR BAR Physical Medications Medication SIG (Take, Route, Fr [...] 08/24/2023 Encounters Encounter Location Date Provider Diagnosis [facility] [employer] [facility] [address] [place] [address] 08/24/2023 ALISSA WAN Encounter for gynecological examination [...] Follow Up: 1 Year, Reason: Y early Regrinder Exam Provider Name:ALISSA Sol, 09/12/2025 01:00:00 PM, [address], [address], [place], [address], Progress Notes * ORLANDO GALANOB:1965 (58 yo F)Acc No.[id number]:08/24/2023 PROGRESS NOTES Patient:?SYEDA GALAN Provider:?ALISSA WAN MD :1965???Age:58 Y???Sex:Female D ate:08/24/2023 Address:[address] [place] [address] , [address], [facility] Pcp:RADHA ELISE M.D. Subjective: * Chief Complaints: * ???Annual ATTENDANT HONOR BAR Physical * HPI: ???Constitutional:? 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 ? She has been in [...] has a physically active job. * ROS:?Annual Regrinder Exam ROS:?Bowel habit changes?denies.?Bladder symptoms?denies.?Vaginal discharge, unusual?denies.?Vaginal itch or odor?denies.?weight or appetite changes?denies.?Chest pains, SOB?denies.?depression?denies.?Breast:?Denies?Breast lump.?Denies?Nipple discharge.?Hematology:?Denies?Swollen glands.?Skin:?Patient denies?changing moles.?Psychiatric:?Denies?Anxiety.? * Medical History:? * Regrinder History:?/ Para?/3.?Sexual activity?not currently sexually active.?Last Pap Smear:?08/04/2021 NIL,NEGHPV, 08/17 NIL, neg HR HPV.?Mammogram:?01/13/23 < 50% density, 01/2022 PER PT, 01/2021, [facility], 04/2016 NEG.?Abnormal Pap Smear:?None.?LMP and menses?02/18/2017.?History [...] with: alone. ?Marital status: single. 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 ?Pets: dogs: 1 black lab mix/great [...] no acute distress, well developed, well nourished, biodiesel engine specialist present in room.?HEAD:?normocephalic, atraumatic.?NECK/THYROID:?neck supple, full range [...] muscle mass and strength. 'Sarco' is the Danish word referring to flesh, and 'penia' means [...] * Follow Up:?1 Year (Reason: Y early Regrinder Exam) * Images: Billing Information: * Visit Code:? 96309 Preventive Care Est Pt. Age 40-64. * Procedure Codes:? 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 She has been in state [...] General Examination GENERAL APPEARANCE: in no ac bad river band distress, well developed, well nourished, biodiesel engine specialist present in room HEAD: normocephalic, atrau matic [...]
== END 2025-01-01 09:47 | disposition home or self-care (01) ==
LOC: HO.HOSX 09:46
DX: M25.531 Pain in right wrist (principal); S52.571D Other intraarticular fracture of lower end of right radius, subsequent encounter for closed fracture with routine healing; Z98.890 Other specified postprocedural states
CPT/HCPCS: 73110

== ENCOUNTER 2025-01-01 14:17 | Outpatient (AMB) | payer OTHER, SELFPAY ==
--- NOTE | 2025-01-01 14:19 | MHC.OFFVIS ---
Intake Visit Reasons: PO-Rt Distal Radius ORIF 12/19/24 Intake Note: Syeda is a 59 year old right hand dominant female who presents today for her first post operative appointment s/p Right Distal Radius ORIF 12/19/24. Patient reports that she is having a hard time doing stuff at home for herself as she lives alone. She feels that the splint was causing increased pain. Her arm feels better with the splint off. She has only been taking prescribed medication at night and has been taking OTC Tylenol/NSAIDs during the day. Denies numbness and tingling. Allergies duloxetine Adverse Reaction (Intermediate, Verified 01/01/25 14:30) sedation HPI HPI PO-Rt Distal Radius ORIF 12/19/24: Details: Syeda is a 59 year old right hand dominant female who presents today for her first post operative appointment s/p Right Distal Radius ORIF 12/19/24. Patient reports that she is having a hard time doing stuff at home for herself as she lives alone. She feels that the splint was causing increased pain. Her arm feels better with the splint off. She has only been taking prescribed medication at night and has been taking OTC Tylenol/NSAIDs during the day. Denies numbness and tingling. [facility] Medical History Contusion of right hand Nicotine dependence, cigarettes, uncomplicated Hematuria Anxiety Hypercholesterolemia Fibromyalgia Insomnia Allergic rhinitis Vitamin D deficiency Surgical History History of colonoscopy (~2016) Status post excision of lipoma (~2011) History of lithotripsy (~2015) History of tonsillectomy Family History Father Hypertension Multiple myeloma Mother Bladder cancer Brain cancer Maternal Grandmother Gastric cancer Paternal Grandfather Brain tumor Son In good health Son In good health Son In good health Brother In good health Brother In good health Social History Housing: House Alcohol intake: current Alcohol intake frequency: holidays/special occasions only Comment: once Q 3 months 1-3 drinks Patient Tobacco Use Status: Current everyday Tobacco user Tobacco use type: Cigarette Cigarette Packs Per Day: 0.5 Cigarettes Per Day: 10 Years Smoked: (onset 15yo, 1ppd x 41yrs, 40pyh, still smoking) 10 cigarettes a day e-Cigarette/Vaping Use: Never Used Second Hand Smoke Exposure: No service: No Current occupational status: employed Cognitive needs: No Hearing needs: No Vision needs: No Review of Systems Const All systems reviewed & are unremarkable except as noted in HPI and below Physical Exam Extrem Other: Patient is alert, oriented, and in no acute distress. Neuro: Normal sensation of the tips of all digits of the right hand at this time Vascular: Cap refill brisk Pain: Patient reports minimal tenderness to palpation about the dorsal aspect of the right wrist No pain with range of motion of the fingers of the right hand ROM: Patient is able to make a closed fist and extend all digits of the right hand fully and without difficulty Skin: No lacerations or abrasions. General: Yellowed ecchymosis noted on the volar aspect of the patient's right wrist Improved edema noted over the right wrist wrist No erythema or other evidence of infection Psych: Appears grossly normal Affect normal Attitude cooperative Office Procedures Casting/Splints 51859-Kzit/Wrist Cast Application Procedure code (CPT) selection complete Results Reviewed Results Reviewed: X-rays obtained in the office today and independently reviewed by me, Markel Larios PA-C, demonstrate surgically reduced fracture of the right distal radius with all orthopedic hardware in place and in satisfactory clinical alignment. Assessment & Plan Assessment & Plan (1) History of open reduction and internal fixation (ORIF) procedure: Code(s): Z98.890 - Other specified postprocedural states Category: Surgical (2) Fracture of right distal radius: Code(s): S52.501A - Unspecified fracture of the lower end of right radius, initial encounter for closed fracture Category: Medical Plan 1. Status post ORIF of right distal radius DOS 12/19/2024 Patient appears to be recovering well postoperatively Patient is educated about the typical recovery course Sutures removed, Steri-Strips applied At this time, patient was placed into a Velcro wrist splint to be worn like a cast for the next 2 weeks Patient was amenable to this plan Patient will follow-up in 2 weeks with repeat x-rays for reassessment, sooner with any acute concerns Orders: Orders XR wrist RT min 3V 01/01/25 M25.531 - Pain in right wrist Coding Level of Care Code Global (82510) Diagnoses History of open reduction and internal fixation (ORIF) procedure Z98.890 Fracture of right distal radius S52.501A CPT Codes Casting - CPT: 24653-Gmwj/Wrist Cast Application ([id number])
== END 2025-01-01 14:58 | disposition home or self-care (01) ==
PROVIDERS: PCP Internal Medicine
DX: S52.501D Unspecified fracture of the lower end of right radius, subsequent encounter for closed fracture with routine healing (principal)
CPT/HCPCS: 99024

== ENCOUNTER → 2025-01-01 14:22 | Outpatient (BNV) | payer OTHER, SELFPAY | PROVIDERS: Visit Provider Radiology Diagnostic Radiology | DX: S52.571A Other intraarticular fracture of lower end of right radius, initial encounter for closed fracture (principal) | CPT/HCPCS: 73110 ==

== ENCOUNTER 2025-01-17 14:07 | Outpatient (AMB) | payer OTHER, SELFPAY ==
--- NOTE | 2025-01-17 14:09 | MHC.OFFVIS ---
Vital Signs 01/17/25 14:10 Height 5 ft 3 in Weight 179 lb BMI 31.7 Handedness Right Intake Visit Reasons: PO-Rt Distal Radius ORIF 12/19/24 Intake Note: Syeda is a 59 year old right hand dominant female who presents today for her a post operative appointment s/p Right Distal Radius ORIF DOS: 12/19/24 w/ Dr Mckinney. At her last visit on 01/01/25 patient was placed into a Velcro wrist splint to be worn like a cast for the next 2 weeks. Patient reports the hard part of her brace has been irritating her incision site. She thinks there was a delay in healing due to the rubbing but she says she placed a piece of cotton on the site and thinks it helped a bit. She states when she puts her hand down while having the splint on she can feel swelling and pressure in the hand. Allergies duloxetine Adverse Reaction (Intermediate, Verified 01/17/25 14:10) sedation HPI HPI PO-Rt Distal Radius ORIF 12/19/24: Details: Syeda is a 59 year old right hand dominant female who presents today for her a post operative appointment s/p Right Distal Radius ORIF DOS: 12/19/24 w/ Dr Mckinney. At her last visit on 01/01/25 patient was placed into a Velcro wrist splint to be worn like a cast for the next 2 weeks. Patient reports the hard part of her brace has been irritating her incision site. She thinks there was a delay in healing due to the rubbing but she says she placed a piece of cotton on the site and thinks it helped a bit. She states when she puts her hand down while having the splint on she can feel swelling and pressure in the hand. [facility] Medical History Contusion of right hand Nicotine dependence, cigarettes, uncomplicated Hematuria Anxiety Hypercholesterolemia Fibromyalgia Insomnia Allergic rhinitis Vitamin D deficiency Surgical History History of colonoscopy (~2016) Status post excision of lipoma (~2011) History of lithotripsy (~2015) History of tonsillectomy Family History Father Hypertension Multiple myeloma Mother Bladder cancer Brain cancer Maternal Grandmother Gastric cancer Paternal Grandfather Brain tumor Son In good health Son In good health Son In good health Brother In good health Brother In good health Social History Housing: House Alcohol intake: current Alcohol intake frequency: holidays/special occasions only Comment: once Q 3 months 1-3 drinks Patient Tobacco Use Status: Current everyday Tobacco user Tobacco use type: Cigarette Cigarette Packs Per Day: 0.5 Cigarettes Per Day: 10 Years Smoked: (onset 15yo, 1ppd x 41yrs, 40pyh, still smoking) 10 cigarettes a day e-Cigarette/Vaping Use: Never Used Second Hand Smoke Exposure: No service: No Current occupational status: employed Cognitive needs: No Hearing needs: No Vision needs: No Review of Systems Const All systems reviewed & are unremarkable except as noted in HPI and below Physical Exam Vital Signs: BMI result Body Mass Index 31.7 Extrem Other: Patient is alert, oriented, and in no acute distress. Neuro: Normal sensation of the tips of all digits of the right hand at this time Vascular: Cap refill brisk Pain: Patient reports no tenderness to palpation about the dorsal aspect of the right wrist No pain with range of motion of the fingers of the right hand ROM: Patient is able to make a closed fist and extend all digits of the right hand fully and without difficulty However, patient was unable to extend past neutral, and supination is only to approximately 45 degrees past neutral Skin: No lacerations or abrasions. General: Yellowed ecchymosis noted on the volar aspect of the patient's right wrist Improved edema noted over the right wrist wrist No erythema or other evidence of infection Psych: Appears grossly normal Affect normal Attitude cooperative Results Reviewed Results Reviewed: X-rays obtained in the office today and independently reviewed by me, Markel Larios PA-C, demonstrate surgically reduced fracture of the right distal radius with all orthopedic hardware in place and in satisfactory clinical alignment with evidence of interval bony healing. Assessment & Plan Assessment & Plan (1) History of open reduction and internal fixation (ORIF) procedure: Code(s): Z98.890 - Other specified postprocedural states Category: Surgical Plan 1. Status post ORIF of right wrist DOS 12/19/2024 Patient appears to be recovering well postoperatively Patient is educated about the typical recovery course At this time, patient was informed that she will only require the Velcro wrist splint with daytime activities Patient was also referred to OT for range of motion and strengthening of the right wrist, as she is significantly lacking in extension and supination Patient was amenable to this plan Patient will follow-up in 4 weeks for [id number] check, sooner with any acute concerns Orders: Orders XR wrist RT min 3V 01/17/25 M25.531 - Pain in right wrist OT Evaluation and Treatment 01/17/25 Z98.890 - Other specified postprocedural states Coding Level of Care Code Est Pt Level 3 (08365) Global (29572) Diagnoses History of open reduction and internal fixation (ORIF) procedure Z98.890
[2025-01-17 14:10] VITALS: BMI 31.7
--- OUTSIDE RECORDS SUMMARY | 2025-01-17 15:47 | XMS_ITS ---
Author Organization [facility] Address [address] [place] [address] Care Team Providers Care Incinerator Attendant Name Role Phone RADHA ELISE M.D. Primary Care Provider UnavailALISSA Apple Unavailable [phone] Allergies No Known Allergies REASON FOR VISIT Annual PLANT CUSTODIAN Physical Medications Medication SIG (Take, Route, Frequency, [...] 09/06/2024 Encounters Encounter Location Date Provider Diagnosis [facility] [address] [place] [address] 09/06/2024 ALISSA WAN Encounter for gynecological examination [...] Follow Up: 1 Year, Reason: Y early Boiler House Mechanic Exam Provider Name:ALISSA Sol, 09/12/2025 01:00:00 PM, [address], [address], [place], [address], Progress Notes * ORLANDO GALANOB:1965 (59 yo F)Acc No.[id number]:09/06/2024 PROGRESS NOTES Patient:?SYEDA GALAN Provider:?ALISSA WAN MD :1965???Age:59 Y???Sex:Female D ate:09/06/2024 Address:[address] , [address], [facility] Pcp:RADHA ELISE M.D. 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 ? She has been in [...] cancer. Her last mammogram was 01/15/2024 at [facility] - normal per patient. ? She does not have a family history of colon cancer. She a has had a colonoscopy. The last colonoscopy was 12/12/16. ? The patient does not exercise since her sprained ankles. She walks her dog, and has a physically active job. * ROS:?Annual Boiler House Mechanic Exam ROS:?Bowel habit changes?denies.?Bladder symptoms?denies.?Vaginal discharge, unusual?denies.?Vaginal itch or odor?denies.?weight or appetite changes?denies.?Chest pains, SOB?denies.?depression?denies.?Breast:?Denies?Breast lump.?Denies?Nipple discharge.?Hematology:?Denies?Swollen glands.?Skin:?Patient denies?changing moles.?Psychiatric:?Admits?Anxiety,?she just pushes through .? * Medical History:? * Boiler House Mechanic History:?/ Para?3.?Sexual activity?not currently sexually active.?Last Pap Smear:?08/04/2021 NIL,NEGHPV, 08/17 NIL, neg HR HPV.?Mammogram:?01/13/23 < 50% density, 01/2022 PER PT, 01/2021, [facility], 04/2016 NEG.?Abnormal Pap Smear:?None.?LMP and menses?02/18/2017.?History of [...] well Brother - Aneesh - 1978 - [facility]. * Social History:?Tobacco Use:?Tobacco use other than [...] with: alone. ?Marital status: single. 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 ?Pets: dogs: 1 black lab mix/great pyrenese. [...] no acute distress, well developed, well nourished, preparatory technician present in room.?HEAD:?normocephalic, atraumatic.?NECK/THYROID:?neck supple, full range [...] * Follow Up:?1 Year (Reason: Y early Boiler House Mechanic Exam) * Images: Billing Information: * Visit Code:? 63422 Preventive Care Est Pt. Age 40-64. * Procedure Codes:? 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 She has been in state [...] cancer. Her last mammogram was 01/15/2024 at [facility] - normal per patient. She does not [...] ac abel distress, well developed, well nourished, preparatory technician present in room HEAD: normocephalic, atrau matic [...]
--- OUTSIDE RECORDS SUMMARY | 2025-01-17 15:47 | XMS_ITS ---
Author Organization [facility] Address [address] [place] [address] Care Team Providers Care Dewaxer Name Role Phone RADHA ELISE M.D. Primary Care Provider ALISSA Oden Unavailable [phone] REASON FOR VISIT Annual BILINGUAL MANAGER Physical Encounters Encounter Location Date Provider Diagnosis [facility] [address] [place] [address] 08/30/2024 ALISSA WAN Plan Of Treatment Next Appt Details Provider Name:ALISSA Sol, 09/12/2025 01:00:00 PM, [address], [address], [place], [address], Progress Notes * ORLANDO GALANOB:1965 (59 yo F)Acc No.[id number]:08/30/2024 PROGRESS NOTES Patient:?ELOY GALAN Provider:?ALISSA WAN MD :1965???Age:59 Y???Sex:Female D ate:08/30/2024 Address:[address] [place] [address] , [address], [facility] Pcp:RADHA ELISE M.D. Subjective: * Chief Complaints: * ???1. Annual BILINGUAL MANAGER Physical. * Medical History:? Objective: * Vitals:? Assessment: Plan: * Treatment: * Images: Billing Information: * Visit Code:? * Procedure Codes:? * Electronic signature of ALISSA WAN MD on 01/17/2025 at 03:46 PM EDT Sign off status: Pending * Provider:?ALISSA WAN MD Date:?2023 Generated for Nena dale/Neil/Malathi on:?01/17/2025 03:46 PM EDT
--- OUTSIDE RECORDS SUMMARY | 2025-01-17 15:47 | XMS_ITS ---
Author Organization [facility] Address [address] [place] [address] Care Team Providers Care Beader Name Role Phone RADHA ELISE M.D. 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 Medications Medication SIG (Take, Route, Fr [...] 08/24/2023 Encounters Encounter Location Date Provider Diagnosis [facility] [address] [place] [address] 08/24/2023 ALISSA WAN Encounter for gynecological examination [...] Follow Up: 1 Year, Reason: Y early Cocoa Milling Machine Operator Exam Provider Name:ALISSA Sol, 09/12/2025 01:00:00 PM, [address], [address], [place], [address], Progress Notes * ORLANDO GALANOB:1965 (58 yo F)Acc No.[id number]:08/24/2023 PROGRESS NOTES Patient:?SYEDA GALAN Provider:?ALISSA WAN MD :1965???Age:58 Y???Sex:Female D ate:08/24/2023 Address:[address] [place] [address] , [address], [facility] Pcp:RADHA ELISE M.D. 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 Syeda is a 58yo with LMP 2017 who presents for her yearly multiple resaw operator exam. ? She has been in [...] has a physically active job. * ROS:?Annual Cocoa Milling Machine Operator Exam ROS:?Bowel habit changes?denies.?Bladder symptoms?denies.?Vaginal discharge, unusual?denies.?Vaginal itch or odor?denies.?weight or appetite changes?denies.?Chest pains, SOB?denies.?depression?denies.?Breast:?Denies?Breast lump.?Denies?Nipple discharge.?Hematology:?Denies?Swollen glands.?Skin:?Patient denies?changing moles.?Psychiatric:?Denies?Anxiety.? * Medical History:? * Cocoa Milling Machine Operator History:?/ Para?/3.?Sexual activity?not currently sexually active.?Last Pap Smear:?08/04/2021 NIL,NEGHPV, 08/17 NIL, neg HR HPV.?Mammogram:?01/13/23 < 50% density, 01/2022 PER PT, 01/2021, [facility], 04/2016 NEG.?Abnormal Pap Smear:?None.?LMP and [...] with: alone. ?Marital status: single. 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 ?Pets: dogs: 1 black lab mix/great pyrenese. [...] no acute distress, well developed, well nourished, ground operations crew member present in room.?HEAD:?normocephalic, atraumatic.?NECK/THYROID:?neck supple, full range [...] muscle mass and strength. 'Sarco' is the Brazilian word referring to flesh, and 'penia' means [...] * Follow Up:?1 Year (Reason: Y early Cocoa Milling Machine Operator Exam) * Images: Billing Information: * Visit Code:? 10551 Preventive Care Est Pt. Age 40-64. * Procedure Codes:? * Sign off status: Completed true * Provider:?ALISSA WAN MD Date:?2022 Generated for Marci chito/Neil/eTransmitting on:?01/17/2025 03:47 PM EDT History and Physical Notes * HPI (History of Present Illness) Category Sub-Category Detail Notes Category Not es Constitutional Syeda is a 58yo with LMP 2017 who presents for her yearly multiple resaw operator exam. She has been in state [...] General Examination GENERAL APPEARANCE: in no ac tanacross distress, well developed, well nourished, ground operations crew member present in room HEAD: normocephalic, atrau matic [...]
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
== END 2025-01-17 14:43 | disposition home or self-care (01) ==
LOC: HO.HOS 14:07
PROVIDERS: PCP Internal Medicine
DX: Z98.890 Other specified postprocedural states (principal)
CPT/HCPCS: 99024

== ENCOUNTER 2025-01-17 14:07 | Outpatient (REF) | payer OTHER, SELFPAY ==
--- NOTE | ~2025-01-17 | XR_ITS ---
CLINICAL HISTORY: M25.531 - Pain in right wrist 3 view right wrist Comparison: DX/SR - XR WRIST RT MIN 3V - 01/01/25 14:22 EST Findings: The patient is status post open reduction internal fixation for distal radial fracture in anatomic alignment. There are no significant interval changes. No significant loss of joint space, osteophyte, or erosions. No radiopaque foreign body. IMPRESSION: The patient is status post open reduction internal fixation for distal radial fracture in anatomic alignment. There are no significant interval changes. This document has been electronically signed by: Frankie Gordon MD on 01/18/2025 09:14:35
== END 2025-01-17 14:08 | disposition home or self-care (01) ==
LOC: HO.HOSX 14:07
PROVIDERS: PCP Internal Medicine
DX: M25.531 Pain in right wrist (principal); S52.501D Unspecified fracture of the lower end of right radius, subsequent encounter for closed fracture with routine healing; Z98.890 Other specified postprocedural states
CPT/HCPCS: 73110

== ENCOUNTER → 2025-01-17 14:15 | Outpatient (BNV) | payer OTHER, SELFPAY | PROVIDERS: PCP Internal Medicine; Visit Provider Radiology Diagnostic Radiology | DX: M25.531 Pain in right wrist (principal) | CPT/HCPCS: 73110 ==

== ENCOUNTER 2025-01-24 13:52 | Outpatient (REF) | payer OTHER, SELFPAY ==
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
--- OUTSIDE RECORDS SUMMARY | 2025-01-24 16:11 | XMS_ITS ---
Author Organization [facility] Address [address] [place] [address] Care Team Providers Care Ore Sampler Name Role Phone RADHA ELISE M.D. 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 Medications Medication SIG (Take, Route, Frequency, [...] 09/06/2024 Encounters Encounter Location Date Provider Diagnosis [facility] [address] [place] [address] 09/06/2024 ALISSA WAN Encounter for gynecological examination [...] Follow Up: 1 Year, Reason: Y early Project Construction Assistant Manager Exam Provider Name:ALISSA Sol, 09/12/2025 01:00:00 PM, [address], [address], [place], [address], Progress Notes * ORLANDO GALANOB:1965 (59 yo F)Acc No.[id number]:09/06/2024 PROGRESS NOTES Patient:?SYEDA GALAN Provider:?ALISSA WAN MD :1965???Age:59 Y???Sex:Female D ate:09/06/2024 Address:[address] , [address], [facility] Pcp:RADHA ELISE M.D. 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 ? She has been in state [...] cancer. Her last mammogram was 01/15/2024 at [facility] - normal per patient. ? She does not have a family history of colon cancer. She a has had a colonoscopy. The last colonoscopy was 12/12/16. ? The patient does not exercise since her sprained ankles. She walks her dog, and has a physically active job. * ROS:?Annual Project Construction Assistant Manager Exam ROS:?Bowel habit changes?denies.?Bladder symptoms?denies.?Vaginal discharge, unusual?denies.?Vaginal itch or odor?denies.?weight or appetite changes?denies.?Chest pains, SOB?denies.?depression?denies.?Breast:?Denies?Breast lump.?Denies?Nipple discharge.?Hematology:?Denies?Swollen glands.?Skin:?Patient denies?changing moles.?Psychiatric:?Admits?Anxiety,?she just pushes through .? * Medical History:? * Project Construction Assistant Manager History:?/ Para?3.?Sexual activity?not currently sexually active.?Last Pap Smear:?08/04/2021 NIL,NEGHPV, 08/17 NIL, neg HR HPV.?Mammogram:?01/13/23 < 50% density, 01/2022 PER PT, 01/2021, [facility], 04/2016 NEG.?Abnormal Pap Smear:?None.?LMP and [...] with: alone. ?Marital status: single. 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 ?Pets: dogs: 1 black lab mix/great pyrenese. [...] no acute distress, well developed, well nourished, monitor technician present in room.?HEAD:?normocephalic, atraumatic.?NECK/THYROID:?neck supple, full [...] * Follow Up:?1 Year (Reason: Y early Project Construction Assistant Manager Exam) * Images: Billing Information: * Visit Code:? 92976 Preventive Care Est Pt. Age 40-64. * Procedure Codes:? 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 She has been in state of [...] cancer. Her last mammogram was 01/15/2024 at [facility] - normal per patient. She [...] ac abel distress, well developed, well nourished, monitor technician present in room HEAD: normocephalic, atrau [...]
--- OUTSIDE RECORDS SUMMARY | 2025-01-24 16:11 | XMS_ITS ---
Author Organization [facility] Address [address] [place] [address] Care Team Providers Care Form Builder Name Role Phone RADHA ELISE M.D. Primary Care Provider ALISSA Oden Unavailable [phone] REASON FOR VISIT Annual VITAMIN MANAGER Physical Encounters Encounter Location Date Provider Diagnosis [facility] [address] [place] [address] 08/30/2024 ALISSA WAN Plan Of Treatment Next Appt Details Provider Name:ALISSA Sol, 09/12/2025 01:00:00 PM, [address], [address], [place], [address], Progress Notes * ORLANDO GALANOB:1965 (59 yo F)Acc No.[id number]:08/30/2024 PROGRESS NOTES Patient:?ELOY GALAN Provider:?ALISSA WAN MD :1965???Age:59 Y???Sex:Female D ate:08/30/2024 Address:[address] [place] [address] , [address], [facility] Pcp:RADHA ELISE M.D. Subjective: * Chief Complaints: * ???1. Annual VITAMIN MANAGER Physical. * Medical History:? Objective: * Vitals:? Assessment: Plan: * Treatment: * Images: Billing Information: * Visit Code:? * Procedure Codes:? * Electronic signature of ALISSA WAN MD on 01/24/2025 at 04:11 PM EDT Sign off status: Pending * Provider:?ALISSA WAN MD Date:?2023 Generated for Nena dale/Neil/Malathi on:?01/24/2025 04:11 PM EDT
--- OUTSIDE RECORDS SUMMARY | 2025-01-24 16:11 | XMS_ITS ---
Author Organization [facility] Address [address] [place] [address] Care Team Providers Care Bodywork Therapist Name Role Phone RADHA ELISE M.D. 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 Physical Medications Medication SIG (Take, Route, Fr [...] 08/24/2023 Encounters Encounter Location Date Provider Diagnosis [facility] [address] [place] [address] 08/24/2023 ALISSA WAN Encounter for gynecological examination [...] Follow Up: 1 Year, Reason: Y early Director Of Public Health Exam Provider Name:ALISSA Sol, 09/12/2025 01:00:00 PM, [address], [address], [place], [address], Progress Notes * ORLANDO GALANOB:1965 (58 yo F)Acc No.[id number]:08/24/2023 PROGRESS NOTES Patient:?SYEDA GALAN Provider:?ALISSA WAN MD :1965???Age:58 Y???Sex:Female D ate:08/24/2023 Address:[address] [place] [address] , [address], [facility] Pcp:RADHA ELISE M.D. Subjective: * Chief Complaints: * ???Annual ETHYLENE COMPRESSOR OPERATOR Physical * HPI: ???Constitutional:? 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 ? She has been in state [...] has a physically active job. * ROS:?Annual Director Of Public Health Exam ROS:?Bowel habit changes?denies.?Bladder symptoms?denies.?Vaginal discharge, unusual?denies.?Vaginal itch or odor?denies.?weight or appetite changes?denies.?Chest pains, SOB?denies.?depression?denies.?Breast:?Denies?Breast lump.?Denies?Nipple discharge.?Hematology:?Denies?Swollen glands.?Skin:?Patient denies?changing moles.?Psychiatric:?Denies?Anxiety.? * Medical History:? * Director Of Public Health History:?/ Para?/3.?Sexual activity?not currently sexually active.?Last Pap Smear:?08/04/2021 NIL,NEGHPV, 08/17 NIL, neg HR HPV.?Mammogram:?01/13/23 < 50% density, 01/2022 PER PT, 01/2021, [facility], 04/2016 NEG.?Abnormal Pap Smear:?None.?LMP and menses?02/18/2017.?History of [...] with: alone. ?Marital status: single. 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 ?Pets: dogs: 1 black lab mix/great pyrenese. [...] no acute distress, well developed, well nourished, filler and trimmer present in room.?HEAD:?normocephalic, atraumatic.?NECK/THYROID:?neck supple, full range [...] muscle mass and strength. 'Sarco' is the Tajik word referring to flesh, and 'penia' means [...] * Follow Up:?1 Year (Reason: Y early Director Of Public Health Exam) * Images: Billing Information: * Visit Code:? 75949 Preventive Care Est Pt. Age 40-64. * Procedure Codes:? 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 She has been in state of [...] General Examination GENERAL APPEARANCE: in no ac afognak distress, well developed, well nourished, filler and trimmer present in room HEAD: normocephalic, atrau matic [...]
== END 2025-01-24 13:53 | disposition home or self-care (01) ==
LOC: HO.MAMMO 13:52
PROVIDERS: PCP Internal Medicine; Visit Provider Internal Medicine
DX: Z12.31 Encounter for screening mammogram for malignant neoplasm of breast (principal)
CPT/HCPCS: 77063; 77067

== ENCOUNTER → 2025-01-24 14:00 | Outpatient (BNV) | payer OTHER, SELFPAY | PROVIDERS: PCP Internal Medicine; Visit Provider Internal Medicine | DX: Z12.31 Encounter for screening mammogram for malignant neoplasm of breast (principal) | CPT/HCPCS: 77063; 77067 ==

== ENCOUNTER 2025-01-31 13:20 | Outpatient (REF) | payer OTHER, SELFPAY ==
--- NOTE | ~2025-01-31 | CT_ITS ---
EXAMINATION: CT LUNG SCREENING HISTORY: Smoking history TECHNIQUE: Low dose axial images were obtained from the sternal notch to upper abdomen without IV contrast per standard departmental protocol. Sagittal and coronal reformatted images were also obtained and reviewed. One or more of the following techniques was used for dose reduction: Automated exposure control, adjustment of the mA and/or kV according to patient size, use of iterative reconstruction technique. DLP: 43 mGy-cm COMPARISON: Comparison is made with the prior examination dated 12/11/2023. FINDINGS: Lung nodules: There is a punctate nodule in the right lower lobe (series 4, image 69), and a 2 mm nodule at the left lung base (series 4, image 104) without change. No new pulmonary nodules are identified. Emphysema: none Coronary Calcification: mild Aortic Arch Calcification: none Potentially Significant Incidentals : none Additional Chest Findings: There is no pleural or pericardial effusion. No mediastinal or axillary lymphadenopathy is identified. Visualized upper abdomen: The visualized portions of the liver, spleen, and adrenals have an unremarkable unenhanced appearance. CT/CT lung screening IMPRESSION: No suspicious pulmonary nodules are identified. LUNG-RADS ASSESSMENT: Lung-RADS 2: Benign MANAGEMENT: Continue annual screening with LDCT in 12 months Category S: N/A Electronically signed by: Jean Pierre Talavera MD 01/31/2025 03:11 PM EDT
== END 2025-01-31 13:21 | disposition home or self-care (01) ==
LOC: HO.CT 13:20
PROVIDERS: PCP Internal Medicine; Visit Provider Physician Assistant Medical
DX: Z12.2 Encounter for screening for malignant neoplasm of respiratory organs (principal); F17.210 Nicotine dependence, cigarettes, uncomplicated; Z00.00 Encounter for general adult medical examination without abnormal findings; E78.00 Pure hypercholesterolemia, unspecified; G47.33 Obstructive sleep apnea (adult) (pediatric); R31.29 Other microscopic hematuria; S52.501A Unspecified fracture of the lower end of right radius, initial encounter for closed fracture; S93.401D Sprain of unspecified ligament of right ankle, subsequent encounter
CPT/HCPCS: 71271; 96127

== ENCOUNTER → 2025-01-31 13:22 | Outpatient (BNV) | payer OTHER, SELFPAY | PROVIDERS: PCP Internal Medicine; Visit Provider Radiology Diagnostic Radiology | DX: Z12.2 Encounter for screening for malignant neoplasm of respiratory organs (principal); Z87.891 Personal history of nicotine dependence | CPT/HCPCS: 71271 ==

== ENCOUNTER 2025-01-31 16:05 | Outpatient (AMB) | payer OTHER, SELFPAY ==
[2025-01-31 16:27] VITALS: BP 122/80; PULSE 87; TEMP 36.3; O2SAT 97; BMI 31.6
--- NOTE | 2025-01-31 16:27 | MHC.PC.OV ---
Vital Signs 01/31/25 16:27 Height 5 ft 3 in Weight 178 lb 8 oz BMI 31.6 BP 122/80 Blood Pressure Location Lt brachial Position Sitting Pulse 87 Pulse Source Pulse Oximeter Temp 97.3 F Temp Source Temporal Artery Scan Pulse Oximetry (%) 97 Oxygen Delivery Method Room Air Intake Visit Reasons: annual exam Intake Note: Patient is here today for a physical. [employer] Mesh Required: No Accompanied by: Self / Same As Patient Allergies duloxetine Adverse Reaction (Intermediate, Verified 01/31/25 16:28) sedation Medication List - Last Reconciled 01/31/25 by Yessy Pizarro MD cholecalciferol (vitamin D3) 25 mcg PO DAILY [CPAP As directed] ibuprofen 600 mg PO Q6H PRN magnesium oxide 500 mg PO DAILY mecobalamin (vitamin B12) 5,000 mcg PO .every other day Tobacco use date assessed: 01/31/25 Dental Screening Dental Screen Date: 01/31/25 Did you have a dental visit in the last 12 months?: Yes Did you have a dental problem in the last 6 months where you did not have access to dental care?: No Was dental information given to patient?: Patient has dentist [facility] Medical History Contusion of right hand Nicotine dependence, cigarettes, uncomplicated Hematuria Anxiety Hypercholesterolemia Fibromyalgia Insomnia Allergic rhinitis Vitamin D deficiency Surgical History History of colonoscopy (~2016) Status post excision of lipoma (~2011) History of lithotripsy (~2015) History of tonsillectomy Family History Father Hypertension Multiple myeloma Mother Bladder cancer Brain cancer Maternal Grandmother Gastric cancer Paternal Grandfather Brain tumor Son In good health Son In good health Son In good health Brother In good health Brother In good health Social History (Updated 01/31/25 @ 16:55 by Yessy Pizarro MD) Housing: House Alcohol intake: current Alcohol intake frequency: holidays/special occasions only Comment: once Q 3 months 1-3 drinks Patient Tobacco Use Status: Current everyday Tobacco user Tobacco use type: Cigarette Cigarette Packs Per Day: 0.5 Cigarettes Per Day: 10 Years Smoked: (onset 15yo, 1ppd x 41yrs, 40pyh, still smoking) 8 cigarettes a day(01/2025) e-Cigarette/Vaping Use: Never Used Second Hand Smoke Exposure: No service: No Current occupational status: employed Cognitive needs: No Hearing needs: No Vision needs: No Questionnaire PHQ-9 Over the last 2 weeks, how often have you been bothered by any of the following problems? 1. Little interest or pleasure in doing things: not at all 2. Feeling down, depressed, or hopeless: not at all 3. Trouble falling or staying asleep, or sleeping too much: not at all 4. Feeling tired or having little energy: not at all 5. Poor appetite or overeating: more than half the days 6. Feeling bad about yourself - or that you are a failure or have let yourself or your family down: not at all 7. Trouble concentrating on things, such as reading the newspaper or watching television: several days 8. Moving or speaking so slowly that other people could have noticed. Or the opposite - being so fidgety or restless that you have been moving around a lot more than usual: not at all 9. Thoughts that you would be better off or of hurting yourself in some way: not at all Total score: 3 Depression Screening Interpretation: Negative Depression Screening Done: Yes 93658 - PHQ-9 Billing: Yes Source: Developed by Drs. Jean Pierre Tiwari, Alejandra Bender, Sukhjinder Houston and colleagues, with an educational elisabet from [employer]. Thrive Questionnaire Date Thrive assessed: 01/31/25 I am a: Patient What is your living situation today?: I have a steady place to live Within the past 12 months, did the food you bought not last and you didn't have the money to get more?: Never true Within the past 12 months, did you worry whether your food would run out before you got money to buy more?: Never true Do you have trouble paying for medicines?: No Do you have trouble getting transportation to medical appointments?: No Do you have trouble paying your heating and electricity bill?: No Do you have trouble taking care of your child, family member or friend?: No Do you have trouble with day-to-day activities such as bathing, preparing meals, shopping, managing finances, etc.?: No Are you currently unemployed and looking for a job?: No Are you interested in more education?: No Please select the resources that you would like help with: None Currently or been in a relationship where the following occur: I choose not to answer THRIVE Score: 0 AUDIT C Alcohol Use Questionnaire (AUDIT-C) 1. How often do you have a drink containing alcohol?: Monthly or less 2. How many drinks containing alcohol do you have on a typical day when you are drinking?: 1 or 2 3. How often do you have six or more drinks on one occasion?: Never Total Score: 1 MUKUL-7 AMB Questionnaire MUKUL-7 Date MUKUL - 7 assessed: 01/31/25 Feeling nervous, anxious, or on edge: 0 = Not at all Not being able to stop or control worryin = Not at all Worrying too much about different things: 0 = Not at all Trouble relaxin = More than half the days Being so restless that it is hard to sit still: 1 = Several days Becoming easily annoyed or irritable: 0 = Not at all Feeling afraid as if something awful might happen: 0 = Not at all Total MUKUL-7 score (0-4 normal; 5-9 mild; 10-14 moderate; 15-21 severe): 3 Source: Developed by Drs. Jean Pierre Tiwari, Alejandra Bender, Sukhjinder Houston and colleagues, with an educational elisabet from [employer]. MUKUL-7 Assessment Billing MUKUL-7 Assessment Tool: MUKUL-7 Assessment 39516 Review of Systems Const Denies poor appetite and Denies weakness Eyes Denies no additional complaints ENT Reports Normal hearing present, Denies dizziness, Denies nasal congestion, Denies tinnitus and Denies sore throat Card Denies chest pain, Denies syncope, Denies rapid heart rate and Denies dyspnea Resp Denies cough and Denies dyspnea GI Denies change in stool character, Reports constipation, Denies diarrhea, Denies nausea and Denies vomiting Denies urinary frequency, Denies difficulty voiding and Denies dysuria Neuro Reports Normal hearing present, Denies confusion, Denies dizziness, Denies syncope and Denies weakness Psych Denies confusion Physical exam (Primary Care) Vital Signs: Last Vital Signs Temp 97.3 F 01/31/25 16:27 Pulse 87 01/31/25 16:27 BP 122/80 01/31/25 16:27 Pulse Ox 97 01/31/25 16:27 Oxygen Delivery Method Room Air 01/31/25 16:27 BMI result Body Mass Index 31.6 Tobacco/Smoking Status: Tobacco use Status Tobacco use date assessed 01/31/25 01/31/25 16:29 Patient Tobacco Use Status Current everyday Tobacco 01/31/25 16:29 Tobacco use type Cigarette 01/31/25 16:29 e-Cigarette/Vaping Use Never Used 01/31/25 16:29 PHQ-9: PHQ-9 Score PHQ-9: Total score 3 01/31/25 16:29 Depression Screening Interpretation: Negative Thrive Assessment: Date of Thrive Assessment Date Thrive assessed 01/31/25 01/31/25 16:29 Currently or been in a relationship where the following occur: I choose not to answer Const General: No confusion Orientation/consciousness: No confusion HENMT Other: Impacted cerumen left ear, right ear TM intact Head: Yes normocephalic Ears: external ears normal Face and sinus: Yes normal facial exam Mouth: moist mucous membranes Throat: Yes tonsils normal Eyes Conjunctivae: conjunctivae normal Pupils: Equal, round and reactive pupils present and Pupil accommodation reflex normal Direct Ophthalmoscopy: normal light reflex Neck Neck: No lymphadenopathy Thyroid: Thyroid normal Chest Chest palpation & inspection: normal inspection of the chest Resp Effort & Inspection: normal respiratory effort and no audible wheezes Auscultation: clear to auscultation bilaterally, no crackles, no wheezes and lung sounds not diminished Cardio Rate: regular rate Rhythm: regular rhythm Peripheral pulses: radial pulses present and dorsalis pedis present GI Palpation (GI): no masses Auscultation: normal bowel sounds and normoactive bowel sounds Rectal Exam - Female: deferred Skin General skin exam: no rashes or lesions noted Rashes: no rashes Neuro General: No confusion Cranial nerves: Yes Equal, round and reactive pupils present and Yes Normal hearing present Cognition (Neuro): normal cognition Gait exam (Neuro): Normal gait present Motor exam (neuro): 5/5 motor strength present throughout Deep tendon reflexes (DTR's): Right brachioradialis reflex intensity grade: 2+, Left brachioradialis reflex intensity grade: 2+, Right patellar reflex intensity grade: 2+ and Left patellar reflex intensity grade: 2+ Extrem Other: Closing fist 4/5, 30 degree movement of the wrist [id number] and front and back General: No edema Elbow/forearm/wrist images: 1. 6 in incisional scar Coding Level of Care Code Est Pt Prev Care 40-64y(78164) Diagnoses Annual physical exam Z00.00 Tobacco abuse Z72.0 Hypercholesterolemia E78.00 Obstructive sleep apnea (adult) (pediatric) G47.33 Microscopic hematuria R31.29 Fracture of right distal radius S52.501A Sprain of right ankle, unspecified ligament, subsequent encounter S93.401D Encounter type: subsequent encounter Involved ligament of ankle: unspecified ligament Additional Codes MUKUL-7 Assessment Billing - MUKUL-7 Assessment Tool: MUKUL-7 Assessment 04470 ([id number]) PHQ-9 - 32346 - PHQ-9 Billing: Yes ([id number]) Assessment & Plan Assessment & Plan (1) Annual physical exam: Code(s): Z00.00 - Encounter for general adult medical examination without abnormal findings Category: Medical Plan: Patient is advised to eat healthy, keep well hydrated, keep active and have adequate sleep. (2) Tobacco abuse: Comment: Lung cancer screening program January 2025 Code(s): Z72.0 - Tobacco use Category: Medical Plan: Patient is strongly advised to stop smoking. Lung cancer screening program (3) Hypercholesterolemia: Code(s): E78.00 - Pure hypercholesterolemia, unspecified Category: Medical Plan: Avoid fried foods, chicken skin, eggs, butter margarine, pastries and meat. Be it pork or beef they have a lot of cholesterol (4) Obstructive sleep apnea (adult) (pediatric): Comment: 04/2022 Code(s): G47.33 - Obstructive sleep apnea (adult) (pediatric) Category: Medical Plan: Continue to use the CPAP more than 4 hours a night and benefits from this. (5) Microscopic hematuria: Comment: Urology 2021 cystoscopy Code(s): R31.29 - Other microscopic hematuria Category: Medical Plan: Patient is being followed up by Urology . Concern also on smoking increasing risk for bladder cancer (6) Fracture of right distal radius: Comment: ORIF December 2024 Code(s): S52.501A - Unspecified fracture of the lower end of right radius, initial encounter for closed fracture Category: Medical Plan: Status post ORIF (7) Right ankle sprain: Code(s): S93.401A - Sprain of unspecified ligament of right ankle, initial encounter Category: Medical Qualifiers: Encounter type: subsequent encounter Involved ligament of ankle: unspecified ligament Qualified Code(s): S93.401D - Sprain of unspecified ligament of right ankle, subsequent encounter Plan History of Present Illness The patient is a 59-year-old female presenting for her annual physical examination, concurrent with the management of her chronic health issues. She has a history of obesity and hypercholesterolemia, with recent blood work indicating mildly elevated cholesterol levels. The patient is diagnosed with obstructive sleep apnea, treated using CPAP therapy nightly, which has improved her condition. Tobacco use remains significant, with the resumption of smoking under stress after a period of cessation. Recent significant medical history includes a right distal radial fracture caused by slipping on ice, which resulted in ORIF surgery in December 2024. There is additional mention of an ankle sprain occurring earlier, with symptoms persisting into the present. Notably, there is mention of significant use of ibuprofen for pain management and recent initiation of physical therapy, indicating ongoing recovery. The patient also experienced a COVID-19 infection in September 2024. No outstanding symptoms post-infection were emphasized. Health Maintenance - Advised to stop smoking; risk of cardiovascular and bladder cancer discussed. - Participation in a lung cancer screening program with the CAT scan on January 31 showing no suspicious nodules. - Colonoscopy overdue; last performed in December 2016. - Pap smear conducted in July 2021. - Recommended continuation of CPAP therapy to manage obstructive sleep apnea. - Blood pressure noted as stable and within normal limits. - COVID booster vaccination received. - Tetanus vaccination noted as due. Social History - Tobacco Use Disorder: Resumed smoking approximately eight cigarettes a day due to recent stressors. - Occasional alcohol consumption reported with less than three alcoholic beverages every three months. - Concerns regarding physical activity limitations post-wrist and ankle injuries. - Expresses fear and avoidance of ice due to fall-induced injury. - Support received from neighbors for dog walking during recovery from wrist surgery. Review of Systems - General: Denies fever, nausea, vomiting. - Respiratory: Reports no chest pain, shortness of breath upon awakening. - Gastrointestinal: Reports no issues with bowel movements, swallowing, or heartburn. - Genitourinary: Reports no issues with urination. Denies dysuria or hematuria (urology follow-up noted for hematuria history). - Musculoskeletal: Reports pain and limited function post-right wrist surgery, persistent discomfort related to right ankle sprain. - Neurological: Denies dizziness, syncope, or cognitive deficiencies. Physical Exam General: Cooperative, healthy appearing, comfortable, no acute distress and well developed Orientation: Patient oriented x3 Limitations: No limitations Head: Normal to inspection Ears: Hearing grossly normal bilaterally Nose: Normal external nose present Face and sinus: Normal facial exam Eyes: Appearance normal, both eyes and all related structures Neck: Normal visual inspection and Yes full ROM Respiratory: Normal respiratory effort and able to speak in complete sentences. Clear to auscultation bilaterally Cardiovascular: Regular rate and rhythm. Normal S1 and S2 GI: Normal to inspection. Soft to palpation and nontender Skin: No rashes or lesions noted Neuro: Patient oriented x3 Extremities: Normal to inspection Results - CAT scan for lung cancer screening (February 01, 2024): No suspicious pulmonary nodules. - Blood work (January 2024): Normal blood count, renal function and blood glucose; mildly elevated cholesterol. - Ultrasound (2021 for hematuria): Negative results. Plan The patient should continue CPAP therapy nightly to control sleep apnea symptoms effectively. Resuming a smoking cessation program is crucial to reduce risks of cardiovascular and bladder cancers. Follow up with urology is recommended, along with scheduling an overdue colonoscopy. Engaging in physical therapy for orthopedic recovery is essential, alongside the proper usage of ibuprofen for pain management. Dietary adjustments focusing on cholesterol control and maintaining safety precautions outdoors are advised due to her fall history. Patient was informed and verbally consented to the use of an ambient scribe for clinic note documentation during this visit. Discussion Notes During the visit, I discussed the importance of CPAP therapy for sleep apnea and encouraged the patient to quit smoking, given the associated health risks. We reviewed the necessity of adhering to urology appointments and scheduling a colonoscopy due to past deferred screenings. We addressed her continued pain management with ibuprofen and recent onset of physical therapy for her wrist injury. Discussion also included reinforcing safety measures to prevent falls. Follow-up visits, diagnostic scans, and preventive measures were reviewed. The patient was encouraged to continue her health maintenance activities, focus on weight management, and remain active with appropriate safety measures. Patient Instructions - Use CPAP machine every night for sleep apnea management. - Aim to reduce and eventually quit smoking; consider support programs for cessation. - Follow up with urology as advised and schedule a colonoscopy soon. - Continue physical therapy for wrist and ankle rehabilitation. - Use ibuprofen as needed with food for pain management. - Practice caution in wintry conditions to prevent falls. - Maintain a balanced diet low in cholesterol and stay hydrated. - Schedule regular check-ups and screenings as advised. - Monitor for any changes in health and report any concerns promptly. Orders: Orders Thyroid Stimulating Hormone Today E78.00 - Pure hypercholesterolemia, unspecified Lipid Panel Today E78.00 - Pure hypercholesterolemia, unspecified Vitamin B12 and Folate Today E78.00 - Pure hypercholesterolemia, unspecified Vitamin D 25-OH Total Today E78.00 - Pure hypercholesterolemia, unspecified T Spot TB Today E78.00 - Pure hypercholesterolemia, unspecified Complete Blood Count Auto Diff Today E78.00 - Pure hypercholesterolemia, unspecified Comprehensive Met. Panel Today E78.00 - Pure hypercholesterolemia, unspecified Free T4 (Free Thyroxine) Today E78.00 - Pure hypercholesterolemia, unspecified
== END 2025-01-31 17:05 | disposition home or self-care (01) ==
LOC: HO.HMCH 16:06
PROVIDERS: PCP Internal Medicine; Visit Provider Internal Medicine
DX: Z00.00 Encounter for general adult medical examination without abnormal findings (principal); Z72.0 Tobacco use; E78.00 Pure hypercholesterolemia, unspecified; G47.33 Obstructive sleep apnea (adult) (pediatric); R31.29 Other microscopic hematuria; S52.501A Unspecified fracture of the lower end of right radius, initial encounter for closed fracture; S93.401D Sprain of unspecified ligament of right ankle, subsequent encounter

== ENCOUNTER 2025-02-14 13:50 | Outpatient (AMB) | payer OTHER, SELFPAY ==
[2025-02-14 13:57] VITALS: BMI 31.6
--- NOTE | 2025-02-14 13:57 | MHC.OFFVIS ---
Vital Signs 02/14/25 13:57 Height 5 ft 3 in Weight 178 lb 8 oz BMI 31.6 Intake Visit Reasons: PO-Rt Distal Radius ORIF 12/19/24-w/xray Intake Note: Syeda is a 59 year old right hand dominant female who presents today for a post operative visit s/p right distal radius ORIF, DOS: 12/19/[address] Pari Mckinney. On 01/17/25 she was referred to OT for range of motion and strengthening of the right wrist. Patient reports she continues going to PT, working on strengthening. She reports right thumb clicking for the past 2 weeks as well as some discomfort. Denies numbness, tingling, finger locking. Allergies duloxetine Adverse Reaction (Intermediate, Verified 02/14/25 13:57) sedation HPI HPI PO-Rt Distal Radius ORIF 12/19/24-w/xray: Details: Syeda is a 59 year old right hand dominant female who presents today for a post operative visit s/p right distal radius ORIF, DOS: 12/19/[address] Pari Mckinney. On 01/17/25 she was referred to OT for range of motion and strengthening of the right wrist. Patient reports she continues going to PT, working on strengthening. She reports right thumb clicking for the past 2 weeks as well as some discomfort. Patient reports that this is largely resolved over the last few days. Denies numbness, tingling, finger locking. FORMERLY [facility], [facility]–1983 Medical History Contusion of right hand Nicotine dependence, cigarettes, uncomplicated Hematuria Anxiety Hypercholesterolemia Fibromyalgia Insomnia Allergic rhinitis Vitamin D deficiency Surgical History History of colonoscopy (~2016) Status post excision of lipoma (~2011) History of lithotripsy (~2015) History of tonsillectomy Family History Father Hypertension Multiple myeloma Mother Bladder cancer Brain cancer Maternal Grandmother Gastric cancer Paternal Grandfather Brain tumor Son In good health Son In good health Son In good health Brother In good health Brother In good health Social History (Updated 01/31/25 @ 16:55 by Yessy Pizarro MD) Housing: House Alcohol intake: current Alcohol intake frequency: holidays/special occasions only Comment: once Q 3 months 1-3 drinks Patient Tobacco Use Status: Current everyday Tobacco user Tobacco use type: Cigarette Cigarette Packs Per Day: 0.5 Cigarettes Per Day: 10 Years Smoked: (onset 15yo, 1ppd x 41yrs, 40pyh, still smoking) 8 cigarettes a day(01/2025) e-Cigarette/Vaping Use: Never Used Second Hand Smoke Exposure: No service: No Current occupational status: employed Cognitive needs: No Hearing needs: No Vision needs: No Review of Systems Const All systems reviewed & are unremarkable except as noted in HPI and below Physical Exam Vital Signs: BMI result Body Mass Index 31.6 Extrem Other: Patient is alert, oriented, and in no acute distress. Neuro: Normal sensation of the tips of all digits of the right hand at this time Vascular: Cap refill brisk Pain: Patient reports no tenderness to palpation about the dorsal aspect of the right wrist No pain with range of motion of the fingers of the right hand ROM: Patient is able to make a closed fist and extend all digits of the right hand fully and without difficulty Extension to approximately 35 degrees past neutral. supination is to approximately 70 degrees past neutral Skin: No lacerations or abrasions. General: Ecchymosis resolved Improved edema noted over the right wrist wrist No erythema or other evidence of infection Psych: Appears grossly normal Affect normal Attitude cooperative Assessment & Plan Assessment & Plan (1) History of open reduction and internal fixation (ORIF) procedure: Code(s): Z98.890 - Other specified postprocedural states Category: Surgical Plan 1. Status post ORIF of right wrist DOS 12/19/2024 Patient appears to be recovering well postoperatively Patient is educated about the typical recovery course At this time, patient was informed that she will only require the Velcro wrist splint with daytime activities Patient should continue to go to OT for range of motion and strengthening of the right wrist, as she is improving but still isn't back to full range of motion Patient was amenable to this plan Patient will follow-up in 4 weeks for [id number] check, sooner with any acute concerns Coding Level of Care Code Global (80395) Diagnoses History of open reduction and internal fixation (ORIF) procedure Z98.890
--- OUTSIDE RECORDS SUMMARY | 2025-02-14 14:13 | XMS_ITS ---
Author Organization [facility] Address [address] [place] [address] Care Team Providers Care Grocery Sacker Name Role Phone RADHA ELISE M.D. 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 Medication SIG (Take, Route, [...] 09/06/2024 Encounters Encounter Location Date Provider Diagnosis [facility] [address] [place] [address] 09/06/2024 ALISSA WAN Encounter for gynecological examination [...] Follow Up: 1 Year, Reason: Y early Boiling House Hand Exam Provider Name:ALISSA Sol, 09/12/2025 01:00:00 PM, [email or web address], [place], [address], Progress Notes * ORLANDO GALANOB:1965 (59 yo F)Acc No.[id number]:09/06/2024 PROGRESS NOTES Patient:?SYEDA GALAN Provider:?ALISSA WAN MD :1965???Age:59 Y???Sex:Female D ate:09/06/2024 Address:[address] , [address], [facility] Pcp:RADHA ELISE M.D. 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 ? She has been in state [...] cancer. Her last mammogram was 01/15/2024 at [facility] - normal per patient. ? She does not have a family history of colon cancer. She a has had a colonoscopy. The last colonoscopy was 12/12/16. ? The patient does not exercise since her sprained ankles. She walks her dog, and has a physically active job. * ROS:?Annual Boiling House Hand Exam ROS:?Bowel habit changes?denies.?Bladder symptoms?denies.?Vaginal discharge, unusual?denies.?Vaginal itch or odor?denies.?weight or appetite changes?denies.?Chest pains, SOB?denies.?depression?denies.?Breast:?Denies?Breast lump.?Denies?Nipple discharge.?Hematology:?Denies?Swollen glands.?Skin:?Patient denies?changing moles.?Psychiatric:?Admits?Anxiety,?she just pushes through .? * Medical History:? * Boiling House Hand History:?/ Para?3.?Sexual activity?not currently sexually active.?Last Pap Smear:?08/04/2021 NIL,NEGHPV, 08/17 NIL, neg HR HPV.?Mammogram:?01/13/23 < 50% density, 01/2022 PER PT, 01/2021, [facility], 04/2016 NEG.?Abnormal Pap Smear:?None.?LMP and menses?02/18/2017.?History [...] well Brother - Aneesh - 1978 - [facility]. * Social History:?Tobacco Use:?Tobacco use [...] with: alone. ?Marital status: single. 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 ?Pets: dogs: 1 black lab mix/great pyrenese. [...] no acute distress, well developed, well nourished, unit manager convenience stores present in room.?HEAD:?normocephalic, atraumatic.?NECK/THYROID:?neck supple, full range [...] * Follow Up:?1 Year (Reason: Y early Boiling House Hand Exam) * Images: Billing Information: * Visit Code:? 88885 Preventive Care Est Pt. Age 40-64. * Procedure Codes:? 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 She has been in state of [...] cancer. Her last mammogram was 01/15/2024 at [facility] - normal per patient. She [...] ac abel distress, well developed, well nourished, unit manager convenience stores present in room HEAD: normocephalic, atrau matic [...]
--- OUTSIDE RECORDS SUMMARY | 2025-02-14 14:13 | XMS_ITS ---
Author Organization [facility] Address [address] [place] [address] Care Team Providers Care Coutierier Name Role Phone RADHA ELISE M.D. 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 [address] [place] [address] 08/24/2023 ALISSA WAN Encounter for gynecological examination [...] Follow Up: 1 Year, Reason: Y early Quill Worker Exam Provider Name:ALISSA Sol, 09/12/2025 01:00:00 PM, [address], [address], [place], [address], Progress Notes * ORLANDO GALANOB:1965 (58 yo F)Acc No.[id number]:08/24/2023 PROGRESS NOTES Patient:?SYEDA GALAN Provider:?ALISSA WAN MD :1965???Age:58 Y???Sex:Female D ate:08/24/2023 Address:[address] [place] [address] , [address], [facility] Pcp:RADHA ELSIE M.D. 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 ? She has been in [...] has a physically active job. * ROS:?Annual Quill Worker Exam ROS:?Bowel habit changes?denies.?Bladder symptoms?denies.?Vaginal discharge, unusual?denies.?Vaginal itch or odor?denies.?weight or appetite changes?denies.?Chest pains, SOB?denies.?depression?denies.?Breast:?Denies?Breast lump.?Denies?Nipple discharge.?Hematology:?Denies?Swollen glands.?Skin:?Patient denies?changing moles.?Psychiatric:?Denies?Anxiety.? * Medical History:? * Quill Worker History:?/ Para?/3.?Sexual activity?not currently sexually active.?Last Pap Smear:?08/04/2021 NIL,NEGHPV, 08/17 NIL, neg HR HPV.?Mammogram:?01/13/23 < 50% density, 01/2022 PER PT, 01/2021, [facility], 04/2016 NEG.?Abnormal Pap Smear:?None.?LMP and menses?02/18/2017.?History [...] with: alone. ?Marital status: single. 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 ?Pets: dogs: 1 black lab mix/great pyrenese. [...] no acute distress, well developed, well nourished, appliance installer present in room.?HEAD:?normocephalic, atraumatic.?NECK/THYROID:?neck supple, full range [...] muscle mass and strength. 'Sarco' is the [place] word referring to flesh, and 'penia' means [...] * Follow Up:?1 Year (Reason: Y early Quill Worker Exam) * Images: Billing Information: * Visit Code:? 76437 Preventive Care Est Pt. Age 40-64. * Procedure Codes:? 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 She has been in state [...] General Examination GENERAL APPEARANCE: in no ac [place] distress, well developed, well nourished, appliance installer present in room HEAD: normocephalic, atrau matic [...]
--- OUTSIDE RECORDS SUMMARY | 2025-02-14 14:13 | XMS_ITS ---
Author Organization [facility] Address [address] [place] [address] Care Team Providers Care Sephora Operations Consultant Name Role Phone RADHA ELISE M.D. Primary Care Provider ALISSA Oden Unavailable [phone] REASON FOR VISIT Annual PARISH WORKER Physical Encounters Encounter Location Date Provider Diagnosis [facility] [address] [place] [address] 08/30/2024 ALISSA WAN Plan Of Treatment Next Appt Details Provider Name:ALISSA Sol, 09/12/2025 01:00:00 PM, [address], [address], [place], [address], Progress Notes * ORLANDO GALANOB:1965 (59 yo F)Acc No.[id number]:08/30/2024 PROGRESS NOTES Patient:?ELOY GALAN Provider:?ALISSA WAN MD :1965???Age:59 Y???Sex:Female D ate:08/30/2024 Address:[address] [place] [address] , [address], [facility] Pcp:RADHA ELISE M.D. Subjective: * Chief Complaints: * ???1. 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 * Medical History:? Objective: * Vitals:? Assessment: Plan: * Treatment: * Images: Billing Information: * Visit Code:? * Procedure Codes:? * Electronic signature of ALISSA WAN MD on 02/14/2025 at 02:13 PM EDT Sign off status: Pending * Provider:?ALISSA WAN MD Date:?2023 Generated for Nena dale/Neil/Malathi on:?02/14/2025 02:13 PM EDT
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
== END 2025-02-14 14:28 | disposition home or self-care (01) ==
LOC: HO.HOS 13:51
PROVIDERS: PCP Internal Medicine
DX: Z98.890 Other specified postprocedural states (principal)
CPT/HCPCS: 99024

== ENCOUNTER 2025-03-06 14:12 | Outpatient (RCR) | payer OTHER, SELFPAY ==
--- NOTE | 2025-01-30 14:28 | MHC.OT.EP ---
[address] [phone] Occupational Therapy Plan of Care Patient Name: Syeda Villa Date of Evaluation: 01/30/25 Diagnosis: Right DRF Pain Location: Pain free a trest Sore/stiff in the morning Achy towards the end of the day, or can have throbbing when walking Sensitive over surgical site Pain Score: 6 Pain Scale Used: Numeric (0 - 10) Aggravating Factors: Movement, walking w/ hand down by side Alleviating Factors: Ice occasionally Assessment: 59 yo female slipped on ice resulting in right nondisplaced intraarticular distal radius fracture. She is now post-op repair w/ ORIF 12/19/24. On last ortho visit she was given velcro orthosis to wear for two weeks and is now weaning off wear. Today on assessment, she is very pleasant and motivated, reports she has been doing exercises for active digit and range movement. She is still very tight w/ flex, ext and supination, also slightly guarded w/ full digit flexion but able to come tip-palm w/ guidance. I anticipate she will do well through course of OT w/ goal of return to work and full use of right hand/wrist. Frequency and Duration: The patient will be seen 2x/wk for 6 weeks Short Term Goals: Progress to light strengthening Gross grasp >10lb Ind w/ edema mangement Ind w/ scar management Wrist flex 50 degrees Wrist ext 45 degrees Wrist sup 45 degrees Care Home Goals: Pain free w/ moderate daily activities (chores, laundry, walking dog) Ind w/ progression of strengthening QuickDash score <40 pts Right gross grasp >40lb Wrist flex >65 degrees Wrist ext >65 degrees Wrist sup >70 degrees Treatment Plan: Therapeutic Exercise Therapeutic Activity Home Exercise Program Patient Education Desensitization/Sensory Re-ed Edema Control ADL Training Paraffin Fluidotherapy MHP Cold Packs Joint Mobilization Soft Tissue Mobilization Kinesiotaping Electronically Signed By: Kailyn Huitron OTR/Carleen CHT Please Sign and return to therapist. Thank you once again for your referral.
--- NOTE | 2025-02-13 15:08 | MHC.OT.OP ---
[address] [phone] F: [phone] Occupational Therapy Progress Note Patient Name: Syeda Villa Diagnosis: Right DRF Date of Surgery: 12/19/24 Date of Evaluation: 01/30/25 Treatments to Date: 5 Cancellations to Date: No Shows to Date: Subjective: I've been doing more, I'm cleaning my house in prep of getting back to work Pain Score: 3 Pain Location: Right wrist Objective Measures: Pins and needles if arm in dependent position for too long Status: Progressing Assessment: Syeda is about 8 weeks post-op ORIF of DRF. She is progressing well with range and starting strengthening. She has good follow through w/ HEP and short term goals met. She has low/moderate pain throughout the day and increasing activity, still w/ tentative return to work 03/10/25. Short Term Goals: Progress to light strengthening (met) Gross grasp >10lb (met) Ind w/ edema management (met) Ind w/ scar management (met) Wrist flex 50 degrees (met) Wrist ext 45 degrees (met) Wrist sup 45 degrees (met) Longterm Goals: Pain free w/ moderate daily activities (chores, laundry, walking dog) Ind w/ progression of strengthening QuickDash score <40 pts Right gross grasp >40lb Wrist flex >65 degrees Wrist ext >65 degrees Wrist sup >70 degrees Frequency and Duration: The patient will be seen 2x/wk for 4 weeks Treatment Plan: Therapeutic Exercise Therapeutic Activity Home Exercise Program Patient Education Desensitization/Sensory Re-ed Edema Control ADL Training Paraffin Fluidotherapy MHP Cold Packs Joint Mobilization Soft Tissue Mobilization Kinesiotaping Electronically Signed By: Kailyn Huitron OTR/L CHT Reviewed/agree with student documentation: Therapist:
--- NOTE | 2025-03-07 09:48 | MHC.OT.OP ---
[address] [phone] F: [phone] Occupational Therapy Progress Note Patient Name: Syeda Villa Diagnosis: Right DRF Date of Surgery: 12/19/24 Date of Evaluation: 01/30/25 Treatments to Date: 10 Subjective: I go back to work next week Pain Score: 3 Pain Location: Right wrist Objective Measures: Wrist ext/flex 55/55 -> to 60/68 after heat and stretch Forearm pro/sup 85/80 Gross grasp R 28lb L 50lb Tip-palm AROM, full composite PROM Status: Progressing Assessment: 11 weeks post-op. Continuing to focus on improving wrist PROM/AROM and strength w/ goal of CPR recert this month and return to work next week. Tolerates therapy well w/ stretching and mobs. Improving active index flex and strength. Sleeping well and pain free at rest, but still low pain w/ activities. Short Term Goals: Progress to light strengthening (met) Gross grasp >10lb (met) Ind w/ edema management (met) Ind w/ scar management (met) Wrist flex 50 degrees (met) Wrist ext 45 degrees (met) Wrist sup 45 degrees (met) Multiple Needle Stitcher Goals: Pain free w/ moderate daily activities (chores, laundry, walking dog) Ind w/ progression of strengthening QuickDash score <40 pts Right gross grasp >40lb Wrist flex >65 degrees Wrist ext >65 degrees Wrist sup >70 degrees Frequency and Duration: The patient will be seen 1-2x/wk for 3 weeks Treatment Plan: Therapeutic Exercise Therapeutic Activity Home Exercise Program Patient Education Edema Control ADL Training Paraffin Fluidotherapy MHP Cold Packs Joint Mobilization Soft Tissue Mobilization Kinesiotaping *Pt to trial HEP due to return to work and will call next week if needing more in person therapy to progress Electronically Signed By: Kailyn Huitron OTR/L CHT Reviewed/agree with student documentation: Therapist:
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
== END 2025-04-23 06:55 | disposition home or self-care (01) ==
LOC: HO.OT 14:12
PROVIDERS: PCP Internal Medicine
DX: Z98.890 Other specified postprocedural states (principal)
CPT/HCPCS: 97110; 97140; 97165

== ENCOUNTER 2025-03-14 13:50 | Outpatient (REF) | payer OTHER, SELFPAY ==
--- NOTE | ~2025-03-14 | XR_ITS ---
EXAMINATION: XR WRIST 3 OR MORE VIEWS RIGHT HISTORY: M25.531 - Pain in right wrist COMPARISON: Comparison is made with the prior examination dated 01/17/2025. FINDINGS: Three views of the right wrist are submitted. The bones are osteopenic. The patient is again noted to be status post internal fixation of a fracture of the distal radial metaphysis. The fracture line is less visible, consistent with healing. The joint spaces are preserved. The soft tissues are unremarkable. XR/XR wrist RT min 3V IMPRESSION: Healing internally fixed fracture of the distal radial metaphysis. Electronically signed by: Jean Pierre Talavera MD 03/14/2025 02:27 PM EDT
== END 2025-03-14 13:51 | disposition home or self-care (01) ==
LOC: HO.HOSX 13:50
PROVIDERS: PCP Internal Medicine
DX: M25.531 Pain in right wrist (principal)
CPT/HCPCS: 73110

== ENCOUNTER 2025-03-14 13:50 | Outpatient (AMB) | payer OTHER, SELFPAY ==
--- NOTE | 2025-03-14 13:53 | A.OFFVIS_ITS ---
Intake Visit Reasons: PO-Rt Distal Radius ORIF 12/19/24-w/xray Intake Note: Syeda is a 59 year old right hand dominant female who presents today for a post operative visit s/p right distal radius ORIF, DOS: 12/19/[address] Pari Mckinney. Patient reports that she was doing very well, but since returning to work and doing full workload she feels increased pain, tightness and swelling. She finds increased pain with weather changes. Avoids NSAID use. Allergies duloxetine Adverse Reaction (Intermediate, Verified 02/14/25 13:57) sedation HPI HPI PO-Rt Distal Radius ORIF 12/19/24-w/xray: Details: Syeda is a 59 year old right hand dominant female who presents today for a post operative visit s/p right distal radius ORIF, DOS: 12/19/[address] Pari Mckinney. Patient reports that she was doing very well, but since returning to work and doing full workload she feels increased pain, tightness and swelling, but states that this is tolerable. She finds increased pain with weather changes. Avoids NSAID use. Denies numbness or tingling [facility] Medical History Contusion of right hand Nicotine dependence, cigarettes, uncomplicated Hematuria Anxiety Hypercholesterolemia Fibromyalgia Insomnia Allergic rhinitis Vitamin D deficiency Surgical History History of colonoscopy (~2016) Status post excision of lipoma (~2011) History of lithotripsy (~2015) History of tonsillectomy Family History Father Hypertension Multiple myeloma Mother Bladder cancer Brain cancer Maternal Grandmother Gastric cancer Paternal Grandfather Brain tumor Son In good health Son In good health Son In good health Brother In good health Brother In good health Social History (Updated 01/31/25 @ 16:55 by Yessy Pizarro MD) Housing: House Alcohol intake: current Alcohol intake frequency: holidays/special occasions only Comment: once Q 3 months 1-3 drinks Patient Tobacco Use Status: Current everyday Tobacco user Tobacco use type: Cigarette Cigarette Packs Per Day: 0.5 Cigarettes Per Day: 10 Years Smoked: (onset 15yo, 1ppd x 41yrs, 40pyh, still smoking) 8 cigarettes a day(01/2025) e-Cigarette/Vaping Use: Never Used Second Hand Smoke Exposure: No service: No Current occupational status: employed Cognitive needs: No Hearing needs: No Vision needs: No Review of Systems Const All systems reviewed & are unremarkable except as noted in HPI and below Physical Exam Extrem Other: Patient is alert, oriented, and in no acute distress. Neuro: Normal sensation of the tips of all digits of the right hand at this time Vascular: Cap refill brisk Pain: Patient reports no tenderness to palpation about the dorsal aspect of the right wrist No pain with range of motion of the fingers of the right hand ROM: Patient is able to make a closed fist and extend all digits of the right hand fully and without difficulty Extension to approximately 50 degrees past neutral, supination to 90 degrees All other range of motion of the right wrist full and intact Skin: No lacerations or abrasions. General: Ecchymosis resolved Edema resolved No erythema or other evidence of infection Psych: Appears grossly normal Affect normal Attitude cooperative Results Reviewed Results Reviewed: X-rays obtained in the office today and independently reviewed by me, Markel Larios PA-C, demonstrate surgically reduced fracture of the right distal radius with all orthopedic hardware in place and in satisfactory clinical alignment with evidence of interval bony healing. Assessment & Plan Assessment & Plan (1) History of open reduction and internal fixation (ORIF) procedure: Code(s): Z98.890 - Other specified postprocedural states Category: Surgical Plan 1. Status post ORIF of right wrist DOS 12/19/2024 Patient appears to be recovering well postoperatively Patient is educated about the typical recovery course At this time, patient was informed that she will only require the Velcro wrist splint with high-risk daytime activities for a further 2-3 weeks Patient should continue to performing OT exercises for range of motion and strengthening of the right wrist, as she is improving but still isn't back to full range of motion Patient was amenable to this plan Patient will follow-up as needed with any acute concerns Orders: Orders XR wrist RT min 3V Today M25.531 - Pain in right wrist Coding Level of Care Code Global (63395) Diagnoses History of open reduction and internal fixation (ORIF) procedure Z98.890
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
--- OUTSIDE RECORDS SUMMARY | 2025-03-14 13:55 | XMS_ITS ---
Author Organization [facility] Address [address] [place] [address] Care Team Providers Care Biomass Boiler Operator Name Role Phone RADHA ELISE M.D. Primary Care Provider UnavailALISSA Apple Unavailable [phone] Allergies No Known Allergies REASON FOR VISIT Annual SHRIMP CLEANER Physical Medications Medication SIG (Take, Route, Frequency, [...] 09/06/2024 Encounters Encounter Location Date Provider Diagnosis [facility] [address] [place] [address] 09/06/2024 ALISSA WAN Encounter for gynecological examination [...] Follow Up: 1 Year, Reason: Y early Second Worker Exam Provider Name:ALISSA Sol, 09/12/2025 01:00:00 PM, [address], [address], [place], [address], Progress Notes * ORLANDO GALANOB:1965 (59 yo F)Acc No.[id number]:09/06/2024 PROGRESS NOTES Patient:?SYEDA GALAN Provider:?ALISSA WAN MD :1965???Age:59 Y???Sex:Female D ate:09/06/2024 Address:[address], [id number] Pcp:RADHA ELISE M.D. Subjective: * Chief Complaints: * ???Annual SHRIMP CLEANER Physical * HPI: ???Constitutional:?Syeda is a 59yo with LMP 2017 who presents for her yearly obgyn hospitalist physician exam. ? She has been in state [...] cancer. Her last mammogram was 01/15/2024 at [facility] - normal per patient. ? She does not have a family history of colon cancer. She a has had a colonoscopy. The last colonoscopy was 12/12/16. ? The patient does not exercise since her sprained ankles. She walks her dog, and has a physically active job. * ROS:?Annual Second Worker Exam ROS:?Bowel habit changes?denies.?Bladder symptoms?denies.?Vaginal discharge, unusual?denies.?Vaginal itch or odor?denies.?weight or appetite changes?denies.?Chest pains, SOB?denies.?depression?denies.?Breast:?Denies?Breast lump.?Denies?Nipple discharge.?Hematology:?Denies?Swollen glands.?Skin:?Patient denies?changing moles.?Psychiatric:?Admits?Anxiety,?she just pushes through .? * Medical History:? * Second Worker History:?/ Para?3.?Sexual activity?not currently sexually active.?Last Pap Smear:?08/04/2021 NIL,NEGHPV, 08/17 NIL, neg HR HPV.?Mammogram:?01/13/23 < 50% density, 01/2022 PER PT, 01/2021, [facility], 04/2016 NEG.?Abnormal Pap Smear:?None.?LMP and menses?02/18/2017.?History [...] well Brother - Aneesh - 1978 - [facility]. * Social History:?Tobacco Use:?Tobacco use other [...] with: alone. ?Marital status: single. 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 ?Pets: dogs: 1 black lab mix/great pyrenese. [...] no acute distress, well developed, well nourished, polish maker present in room.?HEAD:?normocephalic, atraumatic.?NECK/THYROID:?neck supple, full range [...] * Follow Up:?1 Year (Reason: Y early Second Worker Exam) * Images: Billing Information: * Visit Code:? 76356 Preventive Care Est Pt. Age 40-64. * Procedure Codes:? * Sign off status: Completed true * Provider:?ALISSA WAN MD Date:?2023 Generated for Nena dale/Neil/eTransmitting on:?03/14/2025 01:55 PM EDT History and Physical Notes * HPI (History of Present Illness) Category Sub-Category Detail Notes Category Not es Constitutional Syeda is a 59yo with LMP 2017 who presents for her yearly obgyn hospitalist physician exam. She has been in state of [...] cancer. Her last mammogram was 01/15/2024 at [facility] - normal per patient. She does not have a family history of colon cancer. She a has had a colonoscopy. The last colonoscopy was 12/12/16. The patient does not exercise since her sprained ankles. She walks her dog, and has a physically active job. Examination Category Sub-Category Detail Notes Category Not es General Examination GENERAL APPEARANCE: in no ac [place] distress, well developed, well nourished, polish maker present in room HEAD: normocephalic, atrau matic [...]
--- OUTSIDE RECORDS SUMMARY | 2025-03-14 13:55 | XMS_ITS ---
Author Organization [facility] Address [address] [place] [address] Care Team Providers Care Explosives Detonator Name Role Phone RADHA ELISE M.D. Primary Care Provider ALISSA dOen Unavailable [phone] REASON FOR VISIT Annual CODING EDUCATOR Physical Encounters Encounter Location Date Provider Diagnosis [facility] [address] [place] [address] 08/30/2024 ALISSA WAN Plan Of Treatment Next Appt Details Provider Name:ALISSA Sol, 09/12/2025 01:00:00 PM, [address], [address], [place], [address], Progress Notes * ORLANDO GALANOB:1965 (59 yo F)Acc No.[id number]:08/30/2024 PROGRESS NOTES Patient:?ELOY GALAN Provider:?ALISSA WAN MD :1965???Age:59 Y???Sex:Female D ate:08/30/2024 Address:[address] [place] [address] , [address], [facility] Pcp:RADHA ELISE M.D. Subjective: * Chief Complaints: * ???1. Annual CODING EDUCATOR Physical. * Medical History:? Objective: * Vitals:? Assessment: Plan: * Treatment: * Images: Billing Information: * Visit Code:? * Procedure Codes:? * Electronic signature of ALISSA WAN MD on 03/14/2025 at 01:54 PM EDT Sign off status: Pending * Provider:?ALISSA WAN MD Date:?2023 Generated for Nena dale/Neil/Malathi on:?03/14/2025 01:54 PM EDT
== END 2025-03-14 14:23 | disposition home or self-care (01) ==
LOC: HO.HOS 13:51
PROVIDERS: PCP Internal Medicine
DX: Z98.890 Other specified postprocedural states (principal)
CPT/HCPCS: 99024

== ENCOUNTER → 2025-03-14 14:05 | Outpatient (BNV) | payer OTHER, SELFPAY | PROVIDERS: PCP Internal Medicine; Visit Provider Radiology Diagnostic Radiology | DX: M25.531 Pain in right wrist (principal) | CPT/HCPCS: 73110 ==